=== PATIENT | female | born 1955 | race Caucasian/White ===

== ENCOUNTER 2016-10-17 12:33 | Inpatient (IN) | payer MEDICAID ==
[~2016-10-17] VITALS: Ht 170.2 cm; Wt 100.7 kg
[2016-10-17] MEDS ORDERED: SOD CHLORIDE 0.9% 500 ML IV STA (12:42)
--- NOTE | 2016-10-17 14:24 | ERA ---
ER Documentation Chief Complaint Date/Time DATE: 10/17/16 TIME: 14:19 Chief Complaint GEN WEAKNESS AND FATIGUE FOR THE PAST MONTH. WEAK WITH MIN EXERTION HPI This is a very pleasant 61-year-old female with a past medical history of hypertension. She presents to the emergency department complaining of generalized weakness, myalgias, and polyuria with polydipsia for the past month. The patient denies any recent travel or prolonged immobilization and has no shortness of breath at rest or exertion. The patient denies any hemoptysis hematemesis or melanotic stools. She denies any abdominal pain. She has no chest pain or pressure that radiates to the neck arm back or jaw. She has had no night sweats no tactile fever shaking or chills. She denies a productive or nonproductive cough. She denies any weight loss. She states her sister does have diabetes. She had not eaten anything this morning and took her blood glucose with her sisters diabetic monitor and her Accu-Chek was 160. ROS All systems reviewed and are negative except as per history of present illness. Medications Home Meds No Active Prescriptions or Reported Meds Allergies Allergies: Coded Allergies: No Known Allergy (Unverified , 10/17/16) Physical Exam Vitals Vital Signs Date Time Temp Pulse Resp B/P Pulse Ox O2 Delivery O2 Flow Rate FiO2 10/17/16 12:37 98.9 102 20 197/100 100 Physical Exam Constitutional:Well-developed. Well-nourished. HEENT:Normocephalic. Atraumatic.Pupils were equal round reactive to light. Moist mucous membranes.No tonsillar exudates. Conjunctival pallor. Neck: No nuchal rigidity. No lymphadenopathy. No posterior cervical spine tenderness or step-offs. No thyromegaly Respiratory: Not using accessory muscles of respiration.Lungs were clear to auscultation bilaterally. No rhonchi. No rales. No wheezing. Cardiovascular: Regular rate regular rhythm.No murmurs. No rubs were appreciated.S1, S2 normal. Distal pulses are palpable 2+ bilaterally. GI: Abdomen was soft. Nontender. Non Distended. No pulsatile abdominal masses or bruits. No rebound. No guarding. Bowel sounds were present and normal. Muscle skeletal: Full range of motion of both the upper and lower extremities bilaterally.Normal muscle tone.No assymetrical calf tenderness or swelling. Skin: No petechia, no purpura. No lesions on the palms or the soles of the feet. No maculopapular rash. NEURO: Patient was alert, awake, orientated x3.No facial droop. Gait observed and normal with no ataxia.Speech had regular rate and rhythm. No focal neurological deficits. Result Diagram: 10/17/16 1310 10/17/16 1310 Results 24 hrs Laboratory Tests Test 10/17/16 13:10 Absolute Reticulocyte Count 0.065X10^6 Alanine Aminotransferase (ALT/SGPT) 18IU/L Albumin 3.6g/dl Albumin/Globulin Ratio 0.78 Alkaline Phosphatase 74IU/L Anion Gap 17 Aspartate Amino Transf (AST/SGOT) 26IU/L Blood Morphology Comment Blood Urea Nitrogen 18mg/dl Calcium Level 8.8mg/dl Carbon Dioxide Level 28mmol/L Chloride Level 101mmol/L Creatinine 1.25mg/dl Direct Bilirubin 0.00mg/dl Ferritin Pending Globulin 4.60g/dl Glucose Level 128mg/dl Hematocrit 19.1% Hemoglobin 5.7g/dl Indirect Bilirubin 0.0mg/dl Lactate Dehydrogenase 426IU/L Mean Corpuscular Hemoglobin 17.2pg Mean Corpuscular Hemoglobin Concent 29.7g/dl Mean Corpuscular Volume 58.0fl Mean Platelet Volume 7.8fl Nucleated Red Blood Cells # Pending Nucleated Red Blood Cells % Pending Percent Reticulocyte Count 2.0% Platelet Count 38038^3/UL Potassium Level 3.5mmol/L Red Blood Count 3.3010^6/ul Red Cell Distribution Width 20.4% Sodium Level 142mmol/L Total Bilirubin 0.0mg/dl Total Protein 8.2g/dl White Blood Count 10.610^3/ul Current Medications Medications (Trade) Dose Ordered Sig/Panchito Route PRN Reason Start Time Stop Time Status Last Admin Dose Admin Sodium Chloride (NS) 500 ml @ 500 mls/hr Q1H STAT IV 10/17/16 12:42 10/17/16 13:41 DC 10/17/16 14:26 Clonidine (Catapres) 0.1 mg ONCE ONCE PO 10/17/16 14:30 10/17/16 14:31 DC 10/17/16 14:26 Procedures/MDM This patient presented to the emergency department with generalized myalgias. The patient was immediately placed on a automotive sales representative continuous pulse oximetry and IV access was established by nursing staff. Patient received 500 cc bolus of normal saline 12 Lead EKG tracing ordered and reviewed by myself showed: Normal sinus rhythm of 98 bpm and no arrhythmia. SC interval normal. QRS duration normal. No ST segment elevation No ST segment depression. No changes consistent with acute ischemia. The patient does have a family history of diabetes mellitus and therefore obtained a hemoglobin A1c given that she been complaining of polyuria and polydipsia. Patient's blood glucose was normal with no evidence of diabetes at this time. This patient also presented to the emergency department with severely elevated blood pressure however she had not taken her anti-hypertensive medication prior to arrival. My differential diagnosis included but was not limited to conditions that could end-organ damage such as acute coronary syndrome, acute pulmonary edema, aortic dissection, subarachnoid hemorrhage, intracerebral hemorrhage, cerebral infarction, withdrawal syndromes from beta blockers, or states of catecholamine excess such as pheochromocytoma or drug intoxication. Ancillary lab work was obtained. There was no elevation in the BUN and creatinine to suggest acute renal failure. Electrolytes were normal. Cardiac enzyme was normal and the 12 lead EKG showed no acute ischemic changes or left ventricular hypertrophy. Given that the patient had an absence of cerebral, ocular, cardiac or renal damage the hypertensive urgency was treated with oral agents being clonidine in the emergency room with improvement of the patient's blood pressure. The patient had new onset microcytic anemia. The patient signed a written consent to undergo blood transfusion. The patient was typed and crossed and 2 units of packed red blood cells were given to the patient. The patient will be admitted in serious condition to the hospitalist Dr. Khan Departure Diagnosis: Primary Impression: Symptomatic anemia Condition: Serious NETO ALEXANDER Oct 17, 2016 14:24
[2016-10-17 14:33] LABS: ALBUMIN 3.6 g/dl (3.3-4.9)
[2016-10-17 14:34] LABS: HEMATOCRIT 19.1 % (37.0-47.0); MEAN CORPUSCULAR HEMOGLOBIN 17.2 pg (29.0-33.0); MEAN CORPUSCULAR HGB CONC 29.7 g/dl (32.0-37.0); MEAN PLATELET VOLUME 7.8 fl (7.4-10.4); PLATELET COUNT 485 10^3/UL (140-440); POTASSIUM 3.5 mmol/L (3.5-5.1); RED CELL DISTRIBUTION WIDTH 20.4 % (11.5-14.5); UNCORRECTED WBC 10.6 10^3/ul (4.8-10.8); WHITE BLOOD COUNT 10.6 10^3/ul (4.8-10.8)
[2016-10-17 14:36] LABS: ALBUMIN/GLOBULIN RATIO 0.78; CONDITION 1; CREATININE 1.25 mg/dl (0.44-1.00); LH ANALYZER COMMENTS 1; TOTAL PROTEIN 8.2 g/dl (6.1-8.1)
[2016-10-17 14:37] LABS: CALCIUM 8.8 mg/dl (8.4-10.2); IRON 12 ug/dl (35-150)
[2016-10-17 14:38] LABS: HEMOGLOBIN 5.7 g/dl (12.0-16.0)
[2016-10-17 14:46] LABS: TOTAL IRON BINDING CAPACITY 433 ug/dl (241-421)
[2016-10-17 14:54] LABS: T3 UPTAKE 34.4 % (23.5-40.5)
[2016-10-17] MEDS ORDERED: ONDANSETRON 4 MG INJ IV PRN ×2 (15:00→16:00)
[2016-10-17] MEDS ORDERED: ACETAMINOPHEN 325 MG TAB PO PRN (15:00)
[2016-10-17 15:12] LABS: FERRITIN 4.6 ng/ml (11.1-264.0)
[2016-10-17 15:29] LABS: CREATINE KINASE 66 IU/L (23-200)
[2016-10-17 15:37] LABS: CK-MB 0.46 ng/ml (0.0-2.4)
[2016-10-17 15:45] LABS: TROPONIN-I < 0.012 ng/ml (0.00-0.12)
[2016-10-17] MEDS: SOD CHLORIDE 0.9% 1,000 ML IV SCH ×2 (16:00→23:50)
[2016-10-17] MEDS ORDERED: BISACODYL (EC) 5 MG TAB PO PRN (16:00)
[2016-10-17 16:06] LABS: EOSINOPHILS # 0.1 10^3/ul (0.0-0.5); LYMPHOCYTES # 2.3 10^3/ul (0.8-2.9); MONOCYTE # 0.4 10^3/ul (0.3-0.9); NEUTROPHIL # 7.6 10^3/ul (1.6-7.5); NUCLEATED RED BLOOD CELLS% 4.1 /100WBC (0.0-0.0)
[2016-10-17 16:07] LABS: HYPOCHROMASIA 3+; OVALOCYTES 1+
[2016-10-17 16:52] LABS: INR 1.05; PROTIME 13.7 Sec (12.2-14.2); PT RATIO 1.1
[2016-10-17 16:53] LABS: PARTIAL THROMBOPLASTIN TIME 30.9 Sec (25.0-35.0)
[2016-10-17] MEDS: SOD FERRIC GLUC COMPLX 125 MG in SOD CHLORIDE 0.9% 100 ML IVPB SCH (17:00)
[2016-10-17] MEDS: hydrALAzine 20 MG INJ IV PRN (17:36)
[2016-10-17 17:45] VITALS: TEMP 98.4
[2016-10-17 18:19] VITALS: BP 160/87; RESP 20
[2016-10-17 18:27] VITALS: PULSE 88
[2016-10-17 20:00] VITALS: BP 165/92; RESP 20; Ht 170.2 cm; Wt 100.7 kg
[2016-10-17 20:30] VITALS: BP 148/86; PULSE 91; RESP 20
[2016-10-17 20:33] VITALS: PULSE 80
--- NOTE | 2016-10-17 20:40 | RADRPT ---
PROCEDURE: US abdomen, limited, assessment for free fluid CLINICAL INDICATION: Injury, possible bleeding TECHNIQUE: Multiple white scale images were acquired of the patient's abdomen and reviewed on a PAC S workstation. COMPARISON: None FINDINGS: Four-quadrant abnormal ultrasound was performed, without evidence for intraperitoneal free fluid. T wo left renal cysts are incidentally noted, measuring up to 3.4 cm and 2.1 cm. IMPRESSION: No intraperitoneal free fluid is identified on ultrasound examination. RPTAT: HBST .Deondre Meneses MD, MD Date Time Electronically viewed and signed by .Deondre Meneses MD, MD on 10/17/2016 20:39 .T/
--- NOTE | 2016-10-17 20:43 | HP ---
DATE OF ADMISSION: 10/17/2016 PRESENTING COMPLAINT: Weakness with exertion. HISTORY OF PRESENTING COMPLAINT: This is a 61-year-old female with a past medical history of high blood pressure, who presents today complaining of generalized weakness and worsening depression. The patient also complains of muscle aches, but denies chest pain, denies abdominal pain, denies nausea or vomiting. Per ER report, she also has some polyuria and polydipsia, and was found to have a severely-low hemoglobin without a history of black stools, blood in her stool, or heavy periods. She is being admitted for further workup and management. PAST MEDICAL HISTORY: Positive for high blood pressure. PAST SURGICAL HISTORY: Patient denies. ALLERGIES: NO KNOWN DRUG ALLERGIES. SOCIAL HISTORY: Denies tobacco, alcohol, or illicit drug use. FAMILY HISTORY: Noncontributory. REVIEW OF SYSTEMS: I did a 12-point review of systems and pertinent findings are as noted in the HPI. PHYSICAL EXAMINATION VITAL SIGNS: Temperature 98.9, pulse 102, respirations 20, blood pressure 197/ 100, saturations 100% on room air. GENERAL: I found an elderly lady, in no acute distress. HEENT: Head was normocephalic. Pupils were equal and reactive. No scleral jaundice, but there was conjunctival pallor. Mucous membranes are slightly dry. NECK: Supple. CHEST: Fairly clear to auscultation. CARDIOVASCULAR: S1 and S2 without added sounds or murmurs. ABDOMEN: Full, but soft, nontender, with normoactive bowel sounds. EXTREMITIES: The patient had no lower extremity edema. SKIN: She had no ecchymosis or jaundice. There was also no skin rash. LABORATORY VALUES: Hemoglobin 5.7; low, platelets 485,000; high, creatinine 1.25; high. The rest of her basic metabolic profile was unremarkable. LFTs were basically unremarkable as well. EKG showed normal sinus rhythm with sinus tachycardia. No arrhythmia, no ST elevations or depressions. IMAGING: A chest x-ray was reviewed by myself and did not show any acute abnormalities. IMPRESSION: 1. Symptomatic anemia, ? source. 2. Accelerated hypertension. 3. Acute renal insufficiency. 4. Iron deficiency contributing to her anemia as well. PLAN: Is to admit her for further workup of anemia and treatment. She is being scheduled for 2 units of packed red cells. I will follow up on this. Also, will start iron replacement therapy with IV iron she is in house. Will obtain imaging studies to include a pelvic ultrasound and a stool occult blood test, to try and find the source of her bleeding. She might require a GI consultation for endoscopy. Will also continue home antihypertensives. If not available, will start her on a regimen here, and will add intravenous hydralazine p.r.n. I reviewed this plan of care with her. I have answered questions. Admission time has been 40 minutes. For further information and clarification, please review her chart and my orders. Dictated By: PAOLO CAMARILLO MD BA/NTS Conf#: [id number] DID#: [id number] MTDD
[2016-10-17] MEDS: DOCUSATE SODIUM 100 MG CAP PO SCH (21:00)
[2016-10-18] VITALS (13 sets, daily range): BP systolic 130–195; BP diastolic 71–103; PULSE 73–85; RESP 20
[2016-10-18] MEDS: SOD FERRIC GLUC COMPLX 125 MG in SOD CHLORIDE 0.9% 100 ML IVPB SCH ×2 (00:46→17:30)
[2016-10-18 02:21] LABS: HEMOGLOBIN 6.6 g/dl (12.0-16.0)
[2016-10-18] MEDS: hydrALAzine 20 MG INJ IV PRN ×2 (03:07→20:11)
[2016-10-18] MEDS: PANTOPRAZOLE (EC) 40 MG TAB PO SCH (05:16)
[2016-10-18 07:05] LABS: MEAN CORPUSCULAR HEMOGLOBIN 19.6 pg (29.0-33.0); MEAN CORPUSCULAR HGB CONC 30.8 g/dl (32.0-37.0); MEAN CORPUSCULAR VOLUME 63.7 fl (82.0-101.0); PLATELET COUNT 413 10^3/UL (140-440); RED BLOOD COUNT 3.46 10^6/ul (4.20-5.40); RED CELL DISTRIBUTION WIDTH 27.7 % (11.5-14.5); UNCORRECTED WBC 9.9 10^3/ul (4.8-10.8); WHITE BLOOD COUNT 9.9 10^3/ul (4.8-10.8)
[2016-10-18 07:06] LABS: POTASSIUM 3.5 mmol/L (3.5-5.1)
[2016-10-18 07:08] LABS: CREATININE 0.95 mg/dl (0.44-1.00)
[2016-10-18 07:09] LABS: CALCIUM 8.5 mg/dl (8.4-10.2)
[2016-10-18 07:10] LABS: MAGNESIUM 1.8 mg/dl (1.7-2.5)
[2016-10-18 07:28] LABS: CONDITION 1; HEMOGLOBIN 6.8 g/dl (12.0-16.0); LH ANALYZER COMMENTS 1; SUSPECT 1
[2016-10-18] MEDS: SOD CHLORIDE 0.9% 1,000 ML IV SCH ×2 (08:00→16:00)
[2016-10-18 08:06] LABS: ADD UMIC NO; URINE BILIRUBIN (Dip) NEGATIVE (NEGATIVE); URINE BLOOD (Dip) NEGATIVE (NEGATIVE); URINE COLOR LT. YELLOW (YELLOW); URINE GLUCOSE (Dip) NEGATIVE (NEGATIVE); URINE KETONES (Dip) NEGATIVE (NEGATIVE); URINE LEUKOCYTE ESTERASE (Dip) NEGATIVE (NEGATIVE); URINE NITRITE (Dip) NEGATIVE (NEGATIVE); URINE TOTAL PROTEIN (Dip) NEGATIVE (NEGATIVE); URINE UROBILINOGEN (Dip) 0.2 E.U./dL (0.1-1.0)
[2016-10-18 11:58] LABS: LYMPHOCYTES # 2.3 10^3/ul (0.8-2.9); MONOCYTE # 0.6 10^3/ul (0.3-0.9); SPHEROCYTES 1+; TARGET CELLS 1+
--- NOTE | 2016-10-18 12:07 | PN ---
Date/Time of Note Date/Time of Note DATE: 10/18/16 TIME: 12:03 Assessment/Plan VTE Prophylaxis VTE Prophylaxis Intervention: ambulation, SCD's Lines/Catheters IV [facility] Peripheral IV Urinary Cath still in place: No Assessment/Plan Assessment/Plan Symptomatic anemia: ?source. Accelerated hypertension. Acute renal insufficiency: resolved Iron deficiency contributing to her anemia as well. PLAN: Complete blood transfusion Wrong USS test was done , repeat re-ordered Send stool for blood testing GI consult. Patient has never had colonoscopy Supportive care. Subjective 24 Hr Interval Summary Free Text/Dictation Patient seen and examined. She has still not been able to have a BM yet GI review pending Patient continues to deny black stools or vaginal bleeding Exam/Review of Systems Vital Signs Vitals Vital Signs Date Time Temp Pulse Resp B/P Pulse Ox O2 Delivery O2 Flow Rate FiO2 10/18/16 11:23 98.4 74 20 153/73 98 10/18/16 06:05 Room Air 10/17/16 17:45 2.0 Intake and Output 10/17/16 10/17/16 10/18/16 15:00 23:00 07:00 Intake Total 1510 ml Balance 1510 ml Exam HEENT: Head was normocephalic. Pupils were equal and reactive. No scleral jaundice, but there was conjunctival pallor. Mucous membranes are slightly dry. NECK: Supple. CHEST: Fairly clear to auscultation. CARDIOVASCULAR: S1 and S2 without added sounds or murmurs. ABDOMEN: Full, but soft, nontender, with normoactive bowel sounds. EXTREMITIES: The patient had no lower extremity edema. SKIN: She had no ecchymosis or jaundice. There was also no skin rash. Results Result Diagram: 10/18/16 0530 10/18/16 0530 Results 24 hrs Laboratory Tests Test 10/17/16 13:10 10/17/16 13:30 10/18/16 01:45 10/18/16 04:00 Absolute Reticulocyte Count 0.065 Activated Partial Thromboplast Time 30.9 Alanine Aminotransferase (ALT/SGPT) 18 Albumin 3.6 Albumin/Globulin Ratio 0.78 Alkaline Phosphatase 74 Anion Gap 17 H Aspartate Amino Transf (AST/SGOT) 26 Band Neutrophils % 1.0 Blood Morphology Comment Blood Urea Nitrogen 18 Calcium Level 8.8 Carbon Dioxide Level 28 Chloride Level 101 Creatinine 1.25 H Direct Bilirubin 0.00 Eosinophils # 0.1 Eosinophils % 1.0 Ferritin 4.6 L Free Thyroxine Index 3.41 Globulin 4.60 H Glucose Level 128 Hematocrit 19.1 L 22.0 L Hemoglobin 5.7 *L 6.6 *L Hemoglobin A1c Hypochromasia 3+ INR International Normalized Ratio 1.05 Indirect Bilirubin 0.0 Iron Level 12 L Lactate Dehydrogenase 426 Lymphocytes # 2.3 Lymphocytes % 22.0 Mean Corpuscular Hemoglobin 17.2 L Mean Corpuscular Hemoglobin Concent 29.7 L Mean Corpuscular Volume 58.0 L Mean Platelet Volume 7.8 Monocytes # 0.4 Monocytes % 4.0 Neutrophils # 7.6 H Neutrophils % 72.0 Nucleated Red Blood Cells # Nucleated Red Blood Cells % 4.1 H Ovalocytes 1+ Percent Iron Saturation 3 L Percent Reticulocyte Count 2.0 H Platelet Count 485 H Potassium Level 3.5 Prothrombin Time 13.7 Prothrombin Time Ratio 1.1 Red Blood Count 3.30 L Red Cell Distribution Width 20.4 H Sodium Level 142 Thyroxine (T4) 9.9 Total Bilirubin 0.0 L Total Iron Binding Capacity 433 H Total Protein 8.2 H Triiodothyronine (T3) Uptake 34.4 White Blood Count 10.6 Creatine Kinase 66 Creatine Kinase Index 0.7 Creatinine Kinase MB (Mass) 0.46 Troponin I < 0.012 Urine Bilirubin NEGATIVE Urine Clarity CLEAR Urine Color LT. YELLOW Urine Glucose NEGATIVE Urine Hemoglobin NEGATIVE Urine Ketones NEGATIVE Urine Leukocyte Esterase NEGATIVE Urine Nitrite NEGATIVE Urine Specific [place] 1.010 Urine Total Protein NEGATIVE Urine Urobilinogen 0.2 E.U./dL Urine pH 6.5 Test 10/18/16 05:30 Anion Gap 15 Blood Morphology Comment Blood Urea Nitrogen 14 Calcium Level 8.5 Carbon Dioxide Level 23 Chloride Level 106 Creatinine 0.95 Eosinophils # 1.0 H Eosinophils % 10.0 H Glucose Level 110 Hematocrit 22.0 L Hemoglobin 6.8 *L Lymphocytes # 2.3 Lymphocytes % 23.0 Magnesium Level 1.8 Mean Corpuscular Hemoglobin 19.6 L Mean Corpuscular Hemoglobin Concent 30.8 L Mean Corpuscular Volume 63.7 L Mean Platelet Volume 8.0 Monocytes # 0.6 Monocytes % 6.0 Neutrophils # 6.0 Neutrophils % 61.0 Nucleated Red Blood Cells % 1.0 H Platelet Count 413 Potassium Level 3.5 Red Blood Count 3.46 L Red Cell Distribution Width 27.7 #H Sodium Level 140 Spherocytes 1+ Target Cells 1+ White Blood Count 9.9 Medications Medications Current Medications Bisacodyl 10 mg 10 mg ONCE PRN PO constipation; Start 10/17/16 at 16:00 Ferric Sodium Gluconate Complex 125 mg/Sodium Chloride 110 ml @ 110 mls/hr Q24H IVPB Last administered on 10/18/16 00:46; Admin Dose 110 MLS/HR; Start at 17:00; Stop 10/21/16 at 17:59 Sodium Chloride (NS) 1,000 ml @ 125 mls/hr Q8H IV Last administered on 23:50; Admin Dose 125 MLS/HR; Start 10/17/16 at 16:00 Docusate Sodium (Colace) 100 mg BID PO ; Start 10/17/16 at 21:00 Ondansetron HCl (Zofran Inj) 4 mg Q6H PRN IV NAUSEA AND/OR VOMITING; Start at 16:00 Pantoprazole (Protonix Tab) 40 mg DAILY@06 PO Last administered on 10/18/16 05 :16; Admin Dose 40 MG; Start 10/18/16 at 06:00 Hydralazine HCl (Apresoline) 10 mg Q6H PRN IV sbp>160mmhg Last administered on 10/18/16 03:07; Admin Dose 10 MG; Start 10/17/16 at 16:00 PAOLO CAMARILLO Oct 18, 2016 12:06
[2016-10-18 14:14] LABS: HEMATOCRIT 28.3 % (37.0-47.0); HEMOGLOBIN 8.8 g/dl (12.0-16.0)
--- NOTE | 2016-10-18 14:51 | RADRPT ---
PROCEDURE: US Pelvis. CLINICAL INDICATION: Pelvic pain. Anemia. TECHNIQUE: The pelvis was evaluated with transabdominal and transvaginal sonography in the axial a nd sagittal planes. COMPARISON: No prior study is available for comparison. FINDINGS: The uterus measures 7.9 x 4.7 x 7.2 cm. There is a posterior submucosal fibroid measuring 0.9 x 1.0 x 1.1 cm. There is no other uterine mass. The ovaries are not visualized. There is no other pelv ic mass or free fluid. IMPRESSION: 1. Posterior submucosal fibroid measuring 1.1 cm. 2. Ovaries not visualized. 3. Otherwise normal pelvic ultrasound. RPTAT: QQ .Dawit Neri MD, MD Date Time Electronically viewed and signed by .Dawit Neri MD, on 10/18/2016 14:50 .R/
[2016-10-18] MEDS ORDERED: MAGNESIUM CITRATE 300 ML BTL PO ONE (16:00)
[2016-10-18] MEDS: DOCUSATE SODIUM 100 MG CAP PO SCH ×2 (16:06→20:41)
[2016-10-18] MEDS: HYDROCHLOROTHIAZIDE 25 MG TAB PO SCH (16:06)
[2016-10-18] MEDS ORDERED: HYDROCODONE/APAP (5/325) TAB PO PRN (21:30)
[2016-10-18] MEDS ORDERED: ACETAMINOPHEN 325 MG TAB PO PRN (21:30)
[2016-10-19] VITALS (13 sets, daily range): BP systolic 117–183; BP diastolic 60–100; PULSE 72–110; RESP 19–20
--- NOTE | 2016-10-19 00:28 | CONS ---
Date/Time of Note Date/Time of Note DATE: 10/19/16 TIME: 00:16 Assessment/Plan Assessment/Plan Additional Assessment/Plan Anemia * continue Iron supplementation * stool OB x 2 * monitor H&H Q6hrs, transfuse 2 units for Hgb < 7.5 * PPI therapy * Further recommendations depend on clinical course * Pt seen in collaboration with Dr. Garza Consultation Date/Type/Reason Admit Date/Time Oct 17, 2016 at 14:53 Type of Consultation: GI Hx of Present Illness 61 YO F pt presented to ED with complaints of weakness. Pt states worsening weakness over the last month. Denies abdominal pain, nausea, vomiting, melena stools, fever, chills, SOB, CP, hematemesis, sick contact, travel outside of the [place], and diarrhea. Pt denies previous endoscopic evaluation. Pt presented with Hgb of 5.7 without any overt signs of bleeding and s/p 3 units PRBC. Pt has PMH of hypertension. Past Medical History Medical History: high cholesterol, hypertension Past Surgical History Past Surgical Hx: no surgical history Social History Alcohol Use: rarely Smoking Status: Never smoker Exam/Review of Systems Vital Signs Vitals Vital Signs Date Time Temp Pulse Resp B/P Pulse Ox O2 Delivery O2 Flow Rate FiO2 10/18/16 20:21 99.0 82 20 195/103 95 10/18/16 06:05 Room Air 10/17/16 17:45 2.0 Intake and Output 10/18/16 10/18/16 10/19/16 15:00 23:00 07:00 Intake Total 2000 ml Output Total 200 ml Balance 1800 ml Exam Constitutional: alert, obese, oriented, well developed Psych: nl mood/affect Head: atraumatic, normocephalic Eyes: EOMI, nl conjunctiva, nl lids ENMT: nl external ears & nose, nl lips & teeth, nl nasal mucosa & septum Respiratory: normal air movement Cardiovascular: regular rate and rhythm Gastrointestinal: non-tender, soft Neurological: CHILD DAY CARE PROVIDER II-XII intact Results Result Diagram: 10/18/16 1400 10/18/16 0530 Results 24 hrs Laboratory Tests Test 10/18/16 01:45 10/18/16 04:00 10/18/16 05:30 10/18/16 14:00 Hematocrit 22.0 L 22.0 L 28.3 #L Hemoglobin 6.6 *L 6.8 *L 8.8 #L Urine Bilirubin NEGATIVE Urine Clarity CLEAR Urine Color LT. YELLOW Urine Glucose NEGATIVE Urine Hemoglobin NEGATIVE Urine Ketones NEGATIVE Urine Leukocyte Esterase NEGATIVE Urine Nitrite NEGATIVE Urine Specific [place] 1.010 Urine Total Protein NEGATIVE Urine Urobilinogen 0.2 E.U./dL Urine pH 6.5 Anion Gap 15 Blood Morphology Comment Blood Urea Nitrogen 14 Calcium Level 8.5 Carbon Dioxide Level 23 Chloride Level 106 Creatinine 0.95 Eosinophils # 1.0 H Eosinophils % 10.0 H Glucose Level 110 Lymphocytes # 2.3 Lymphocytes % 23.0 Magnesium Level 1.8 Mean Corpuscular Hemoglobin 19.6 L Mean Corpuscular Hemoglobin Concent 30.8 L Mean Corpuscular Volume 63.7 L Mean Platelet Volume 8.0 Monocytes # 0.6 Monocytes % 6.0 Neutrophils # 6.0 Neutrophils % 61.0 Nucleated Red Blood Cells % 1.0 H Platelet Count 413 Potassium Level 3.5 Red Blood Count 3.46 L Red Cell Distribution Width 27.7 #H Sodium Level 140 Spherocytes 1+ Target Cells 1+ White Blood Count 9.9 Test 10/18/16 17:00 Stool Occult Blood NEGATIVE Medications Medications Current Medications Bisacodyl 10 mg 10 mg ONCE PRN PO constipation; Start 10/17/16 at 16:00 Ferric Sodium Gluconate Complex 125 mg/Sodium Chloride 110 ml @ 110 mls/hr Q24H IVPB Last administered on 10/18/16 17:30; Admin Dose 110 MLS/HR; Start at 17:00; Stop 10/21/16 at 17:59 Sodium Chloride (NS) 1,000 ml @ 125 mls/hr Q8H IV Last administered on 23:50; Admin Dose 125 MLS/HR; Start 10/17/16 at 16:00 Docusate Sodium (Colace) 100 mg BID PO Last administered on 10/18/16 16:06; Admin Dose 100 MG; Start 10/17/16 at 21:00 Ondansetron HCl (Zofran Inj) 4 mg Q6H PRN IV NAUSEA AND/OR VOMITING; Start at 16:00 Pantoprazole (Protonix Tab) 40 mg DAILY@06 PO Last administered on 10/18/16 05 :16; Admin Dose 40 MG; Start 10/18/16 at 06:00 Hydralazine HCl (Apresoline) 10 mg Q6H PRN IV sbp>160mmhg Last administered on 10/18/16 20:11; Admin Dose 10 MG; Start 10/17/16 at 16:00 Hydrochlorothiazide (Hydrochlorothiazide) 25 mg DAILY PO Last administered on 16:06; Admin Dose 25 MG; Start 10/18/16 at 15:30 Acetaminophen (Tylenol Tab) 650 mg Q6H PRN PO PAIN AND OR ELEVATED TEMP; Start 10/18/16 at 21:30 Acetaminophen/ Hydrocodone Bitart ([place] (5/325)) 1 tab Q6H PRN PO PAIN Last administered on 10/18/16 21:12; Admin Dose 1 TAB; Start 10/18/16 at 21:30 ALEJANDRA MARTINEZ Oct 19, 2016 00:27
[2016-10-19] MEDS: SOD CHLORIDE 0.9% 1,000 ML IV SCH ×3 (00:58→17:11)
[2016-10-19] MEDS: PANTOPRAZOLE (EC) 40 MG TAB PO SCH (06:30)
[2016-10-19 07:04] LABS: HEMOGLOBIN 9.6 g/dl (12.0-16.0); MEAN CORPUSCULAR HEMOGLOBIN 20.9 pg (29.0-33.0); MEAN CORPUSCULAR HGB CONC 31.9 g/dl (32.0-37.0); MEAN CORPUSCULAR VOLUME 65.4 fl (82.0-101.0); MEAN PLATELET VOLUME 8.7 fl (7.4-10.4); PLATELET COUNT 515 10^3/UL (140-440); RED BLOOD COUNT 4.59 10^6/ul (4.20-5.40); RED CELL DISTRIBUTION WIDTH 30.4 % (11.5-14.5); UNCORRECTED WBC 11.9 10^3/ul (4.8-10.8); WHITE BLOOD COUNT 11.9 10^3/ul (4.8-10.8)
[2016-10-19 07:06] LABS: POTASSIUM 3.6 mmol/L (3.5-5.1)
[2016-10-19 07:09] LABS: CREATININE 1.05 mg/dl (0.44-1.00)
[2016-10-19 07:10] LABS: CALCIUM 9.2 mg/dl (8.4-10.2)
[2016-10-19 07:14] LABS: CONDITION 1; LH ANALYZER COMMENTS 1; SUSPECT 1
[2016-10-19] MEDS: DOCUSATE SODIUM 100 MG CAP PO SCH ×2 (09:00→22:38)
[2016-10-19] MEDS: HYDROCHLOROTHIAZIDE 25 MG TAB PO SCH (09:14)
[2016-10-19] MEDS: hydrALAzine 20 MG INJ IV PRN ×2 (09:14→17:13)
[2016-10-19 10:00] LABS: EOSINOPHILS # 0.8 10^3/ul (0.0-0.5); LYMPHOCYTES # 2.6 10^3/ul (0.8-2.9); MONOCYTE # 1.3 10^3/ul (0.3-0.9); NEUTROPHIL # 7.1 10^3/ul (1.6-7.5)
[2016-10-19 10:01] LABS: ANISOCYTOSIS 2+; HYPOCHROMASIA 3+; MICROCYTOSIS 3+
[2016-10-19 10:02] LABS: POIKILOCYTOSIS 1+; POLYCHROMASIA 2+
[2016-10-19 10:03] LABS: OVALOCYTES FEW; PLATELET ESTIMATE PLT APPEAR INCREASED; TARGET CELLS OCCASIONAL
--- NOTE | 2016-10-19 11:41 | PN ---
Date/Time of Note Date/Time of Note DATE: 10/19/16 TIME: 11:36 Assessment/Plan VTE Prophylaxis VTE Prophylaxis Intervention: contraindicated Lines/Catheters IV C[facility]ter Type (from [facility] Peripheral IV Urinary Cath still in place: No Assessment/Plan Assessment/Plan Assessment: Severe unexplained microcytic, hypochromic anemia. Likely iron deficiency Rule out GI bleeding. OB negative 1 dose for No overt gastrointestinal or vaginal bleeding No previous colorectal cancer screening Hypertension Dyslipidemia Obesity Plan: Given the severity of anemia and the fact patient has never been evaluated for colorectal cancer screening I would recommend the patient undergo endoscopy and colonoscopy Patient was informed of this recommendation including an explanation of the procedures, indications, alternatives, potential complications. Patient is agreeable to proceed I will initiate preparation and schedule procedures for Friday Subjective 24 Hr Interval Summary Free Text/Dictation Course reviewed with nursing staff Patient feels better after transfusions She again was questioned regarding any evidence of overt bleeding which she emphatically denies There is no history of use of ulcerogenic drugs There is no gastrointestinal symptomatology of significance Stool OB negative 1 The patient was explained the need for endoscopic evaluation given her age and the fact that she has never had colorectal cancer screening The procedures were explained in detail including risks, benefits and alternatives. Patient is agreeable to proceed Exam/Review of Systems Vital Signs Vitals Vital Signs Date Time Temp Pulse Resp B/P Pulse Ox O2 Delivery O2 Flow Rate FiO2 10/19/16 09:25 97 10/19/16 07:50 98.0 19 183/99 93 10/18/16 06:05 Room Air 10/17/16 17:45 2.0 Intake and Output 10/18/16 10/18/16 10/19/16 15:00 23:00 07:00 Intake Total 2000 ml 1900 ml Output Total 200 ml Balance 1800 ml 1900 ml Exam Constitutional: alert, oriented, well developed Psych: nl mood/affect, no complaints Head: atraumatic, normocephalic Eyes: EOMI, PERRL, nl conjunctiva, nl lids, nl sclera ENMT: nl external ears & nose, nl lips & teeth, nl nasal mucosa & septum Neck: non-tender, supple Respiratory: clear to auscultation, normal air movement Cardiovascular: nl pulses, regular rate and rhythm Gastrointestinal: nl liver, spleen, non-tender, soft Musculoskeletal: nl extremities to inspection, nl gait and stance Extremities: normal pulses Lymph: nl lymph nodes Results Result Diagram: 10/19/16 0620 10/19/16 0620 Results 24 hrs Laboratory Tests Test 10/18/16 14:00 10/18/16 17:00 10/19/16 06:20 Hematocrit 28.3 #L 30.0 L Hemoglobin 8.8 #L 9.6 L Stool Occult Blood NEGATIVE Anion Gap 19 H Anisocytosis 2+ Blood Morphology Comment Blood Urea Nitrogen 12 Calcium Level 9.2 Carbon Dioxide Level 26 Chloride Level 103 Creatinine 1.05 H Eosinophils # 0.8 H Eosinophils % 7.0 Glucose Level 115 Hypochromasia 3+ Large Platelets FEW Lymphocytes # 2.6 Lymphocytes % 22.0 Mean Corpuscular Hemoglobin 20.9 L Mean Corpuscular Hemoglobin Concent 31.9 L Mean Corpuscular Volume 65.4 L Mean Platelet Volume 8.7 Microcytosis 3+ Monocytes # 1.3 H Monocytes % 11.0 Neutrophils # 7.1 Neutrophils % 60.0 Nucleated Red Blood Cells # Nucleated Red Blood Cells % Ovalocytes FEW Platelet Count 515 #H Platelet Estimate PLT APPEAR INCREASED Polychromasia 2+ Potassium Level 3.6 Red Blood Count 4.59 # Red Cell Distribution Width 30.4 H Sodium Level 144 Target Cells OCCASIONAL White Blood Count 11.9 #H Medications Medications Current Medications Bisacodyl 10 mg 10 mg ONCE PRN PO constipation; Start 10/17/16 at 16:00 Ferric Sodium Gluconate Complex 125 mg/Sodium Chloride 110 ml @ 110 mls/hr Q24H IVPB Last administered on 10/18/16 17:30; Admin Dose 110 MLS/HR; Start at 17:00; Stop 10/21/16 at 17:59 Sodium Chloride (NS) 1,000 ml @ 125 mls/hr Q8H IV Last administered on 09:14; Admin Dose 125 MLS/HR; Start 10/17/16 at 16:00 Docusate Sodium (Colace) 100 mg BID PO Last administered on 10/18/16 16:06; Admin Dose 100 MG; Start 10/17/16 at 21:00 Ondansetron HCl (Zofran Inj) 4 mg Q6H PRN IV NAUSEA AND/OR VOMITING; Start at 16:00 Pantoprazole (Protonix Tab) 40 mg DAILY@06 PO Last administered on 10/19/16 06 :30; Admin Dose 40 MG; Start 10/18/16 at 06:00 Hydralazine HCl (Apresoline) 10 mg Q6H PRN IV sbp>160mmhg Last administered on 10/19/16 09:14; Admin Dose 10 MG; Start 10/17/16 at 16:00 Hydrochlorothiazide (Hydrochlorothiazide) 25 mg DAILY PO Last administered on 09:14; Admin Dose 25 MG; Start 10/18/16 at 15:30 Acetaminophen (Tylenol Tab) 650 mg Q6H PRN PO PAIN AND OR ELEVATED TEMP; Start 10/18/16 at 21:30 Acetaminophen/ Hydrocodone Bitart ([place] (5/325)) 1 tab Q6H PRN PO PAIN Last administered on 10/18/16 21:12; Admin Dose 1 TAB; Start 10/18/16 at 21:30 NANCY FELICIANO MD Oct 19, 2016 11:41
--- NOTE | 2016-10-19 12:27 | PN ---
Date/Time of Note Date/Time of Note DATE: 10/19/16 TIME: 12:20 Assessment/Plan VTE Prophylaxis VTE Prophylaxis Intervention: SCD's Lines/Catheters [facility] (from [facility]): Peripheral IV Urinary Cath still in place: No Assessment/Plan Assessment/Plan 61 yo F with Symptomatic anemia: ?source. * Improved post 4 unites of PRBC * Pelvic USS shows fibroid but patient is postmenopausal and has had no vaginal bleeding Hypertension: Suboptimal control Mild CKD likely 2/2 HTN Iron deficiency contributing to her anemia as well. Constipation: resolved PLAN: Continue Iron supplementation Planned for endoscopy on Friday Patient likely is at baseline for CKD Continue supportive care and GI prep Add 2nd agent for improved BP control Propylaxis: PPI / SCDs Subjective 24 Hr Interval Summary Free Text/Dictation Patient seen and examined. was finally able to have BM yesteday Exam/Review of Systems Vital Signs Vitals Vital Signs Date Time Temp Pulse Resp B/P Pulse Ox O2 Delivery O2 Flow Rate FiO2 10/19/16 11:52 98.5 96 20 156/79 97 10/18/16 06:05 Room Air 10/17/16 17:45 2.0 Intake and Output 10/18/16 10/18/16 10/19/16 15:00 23:00 07:00 Intake Total 2000 ml 1900 ml Output Total 200 ml Balance 1800 ml 1900 ml Exam HEENT: Head was normocephalic. Pupils were equal and reactive. No scleral jaundice, but there was conjunctival pallor. Mucous membranes are slightly dry. NECK: Supple. CHEST: Fairly clear to auscultation. CARDIOVASCULAR: S1 and S2 without added sounds or murmurs. ABDOMEN: Full, but soft, nontender, with normoactive bowel sounds. EXTREMITIES: The patient had no lower extremity edema. SKIN: She had no ecchymosis or jaundice. There was also no skin rash. Results Result Diagram: 10/19/16 0620 10/19/16 0620 Results 24 hrs Laboratory Tests Test 10/18/16 14:00 10/18/16 17:00 10/19/16 06:20 10/19/16 12:07 Hematocrit 28.3 #L 30.0 L Hemoglobin 8.8 #L 9.6 L Stool Occult Blood NEGATIVE Anion Gap 19 H Anisocytosis 2+ Blood Morphology Comment Blood Urea Nitrogen 12 Calcium Level 9.2 Carbon Dioxide Level 26 Chloride Level 103 Creatinine 1.05 H Eosinophils # 0.8 H Eosinophils % 7.0 Glucose Level 115 Hypochromasia 3+ Large Platelets FEW Lymphocytes # 2.6 Lymphocytes % 22.0 Mean Corpuscular Hemoglobin 20.9 L Mean Corpuscular Hemoglobin Concent 31.9 L Mean Corpuscular Volume 65.4 L Mean Platelet Volume 8.7 Microcytosis 3+ Monocytes # 1.3 H Monocytes % 11.0 Neutrophils # 7.1 Neutrophils % 60.0 Nucleated Red Blood Cells # Nucleated Red Blood Cells % Ovalocytes FEW Platelet Count 515 #H Platelet Estimate PLT APPEAR INCREASED Polychromasia 2+ Potassium Level 3.6 Red Blood Count 4.59 # Red Cell Distribution Width 30.4 H Sodium Level 144 Target Cells OCCASIONAL White Blood Count 11.9 #H Lab Scanned Report REFERENCE LAB Medications Medications Current Medications Bisacodyl 10 mg 10 mg ONCE PRN PO constipation; Start 10/17/16 at 16:00 Ferric Sodium Gluconate Complex 125 mg/Sodium Chloride 110 ml @ 110 mls/hr Q24H IVPB Last administered on 10/18/16 17:30; Admin Dose 110 MLS/HR; Start at 17:00; Stop 10/21/16 at 17:59 Sodium Chloride (NS) 1,000 ml @ 125 mls/hr Q8H IV Last administered on 09:14; Admin Dose 125 MLS/HR; Start 10/17/16 at 16:00 Docusate Sodium (Colace) 100 mg BID PO Last administered on 10/18/16 16:06; Admin Dose 100 MG; Start 10/17/16 at 21:00 Ondansetron HCl (Zofran Inj) 4 mg Q6H PRN IV NAUSEA AND/OR VOMITING; Start at 16:00 Pantoprazole (Protonix Tab) 40 mg DAILY@06 PO Last administered on 10/19/16 06 :30; Admin Dose 40 MG; Start 10/18/16 at 06:00 Hydralazine HCl (Apresoline) 10 mg Q6H PRN IV sbp>160mmhg Last administered on 10/19/16 09:14; Admin Dose 10 MG; Start 10/17/16 at 16:00 Hydrochlorothiazide (Hydrochlorothiazide) 25 mg DAILY PO Last administered on 09:14; Admin Dose 25 MG; Start 10/18/16 at 15:30 Acetaminophen (Tylenol Tab) 650 mg Q6H PRN PO PAIN AND OR ELEVATED TEMP; Start 10/18/16 at 21:30 Acetaminophen/ Hydrocodone Bitart ([place] (5/325)) 1 tab Q6H PRN PO PAIN Last administered on 10/18/16 21:12; Admin Dose 1 TAB; Start 10/18/16 at 21:30 Bisacodyl (Dulcolax) 10 mg ONCE ONCE PO ; Start 10/20/16 at 12:00; Stop at 12:01 Magnesium Citrate (Citroma) 300 ml ONCE ONCE PO ; Start 10/20/16 at 13:00; Stop 10/20/16 at 13:01 Polyethylene Glycol (Miralax) 119 gm ONCE ONCE PO ; Start 10/20/16 at 14:00; Stop 10/20/16 at 14:01 PAOOL CAMARILLO Oct 19, 2016 12:27
[2016-10-19] MEDS: SOD FERRIC GLUC COMPLX 125 MG in SOD CHLORIDE 0.9% 100 ML IVPB SCH (17:10)
[2016-10-19] MEDS: METOPROLOL 25 MG TAB PO SCH (22:40)
[2016-10-20] VITALS (12 sets, daily range): BP systolic 138–219; BP diastolic 74–116; PULSE 72–92; RESP 18–20
[2016-10-20] MEDS: SOD CHLORIDE 0.9% 1,000 ML IV SCH ×4 (00:25→23:43)
[2016-10-20] MEDS: PANTOPRAZOLE (EC) 40 MG TAB PO SCH (05:54)
[2016-10-20 06:43] LABS: HEMATOCRIT 29.4 % (37.0-47.0); HEMOGLOBIN 9.5 g/dl (12.0-16.0); MEAN CORPUSCULAR HEMOGLOBIN 21.1 pg (29.0-33.0); MEAN CORPUSCULAR HGB CONC 32.2 g/dl (32.0-37.0); MEAN CORPUSCULAR VOLUME 65.6 fl (82.0-101.0); MEAN PLATELET VOLUME 8.4 fl (7.4-10.4); PLATELET COUNT 530 10^3/UL (140-440); RED BLOOD COUNT 4.49 10^6/ul (4.20-5.40); RED CELL DISTRIBUTION WIDTH 31.6 % (11.5-14.5); UNCORRECTED WBC 13.4 10^3/ul (4.8-10.8); WHITE BLOOD COUNT 13.4 10^3/ul (4.8-10.8)
[2016-10-20 06:46] LABS: POTASSIUM 3.8 mmol/L (3.5-5.1)
[2016-10-20 06:47] LABS: CONDITION 1; LH ANALYZER COMMENTS 1; SUSPECT 1
[2016-10-20 06:49] LABS: CREATININE 1.15 mg/dl (0.44-1.00)
[2016-10-20 06:50] LABS: CALCIUM 9.3 mg/dl (8.4-10.2)
[2016-10-20] MEDS: METOPROLOL 25 MG TAB PO SCH (08:17)
[2016-10-20] MEDS: HYDROCHLOROTHIAZIDE 25 MG TAB PO SCH (08:17)
[2016-10-20] MEDS: DOCUSATE SODIUM 100 MG CAP PO SCH ×2 (08:17→21:32)
[2016-10-20 10:16] LABS: EOSINOPHILS # 0.3 10^3/ul (0.0-0.5); LYMPHOCYTES # 2.1 10^3/ul (0.8-2.9); MONOCYTE # 1.3 10^3/ul (0.3-0.9); NEUTROPHIL # 9.6 10^3/ul (1.6-7.5)
[2016-10-20 10:17] LABS: ANISOCYTOSIS 2+; HYPOCHROMASIA 2+; MICROCYTOSIS 2+
[2016-10-20] MEDS ORDERED: BISACODYL (EC) 5 MG TAB PO ONE (12:00)
[2016-10-20] MEDS ORDERED: MAGNESIUM CITRATE 300 ML BTL PO ONE (13:00)
[2016-10-20] MEDS ORDERED: POLYETHYLENE GLYCOL 3350 119 GM POWDER PO ONE (14:00)
--- NOTE | 2016-10-20 14:12 | PN ---
Date/Time of Note Date/Time of Note DATE: 10/20/16 TIME: 14:10 Assessment/Plan VTE Prophylaxis VTE Prophylaxis Intervention: SCD's Lines/Catheters IV [facility]ter Type (from [facility]): Peripheral IV Urinary Cath still in place: No Assessment/Plan Assessment/Plan Assessment: Severe unexplained microcytic, hypochromic anemia. Likely iron deficiency Rule out GI bleeding. OB negative 1 dose for No overt gastrointestinal or vaginal bleeding No previous colorectal cancer screening Hypertension Dyslipidemia Obesity Plan: Continue colonoscopy preparation EGD and colonoscopy scheduled for tomorrow afternoon Subjective 24 Hr Interval Summary Free Text/Dictation Course reviewed with nursing staff Having some loose bowel movements related to colonoscopy prep Otherwise asymptomatic Exam/Review of Systems Vital Signs Vitals Vital Signs Date Time Temp Pulse Resp B/P Pulse Ox O2 Delivery O2 Flow Rate FiO2 10/20/16 12:53 78 10/20/16 11:50 98.7 20 149/88 94 10/18/16 06:05 Room Air 10/17/16 17:45 2.0 Intake and Output 10/19/16 10/19/16 10/20/16 15:00 23:00 07:00 Intake Total 750 ml 2000 ml Balance 750 ml 2000 ml Exam Constitutional: alert, oriented, well developed Psych: nl mood/affect, no complaints Head: atraumatic, normocephalic Eyes: EOMI, PERRL, nl conjunctiva, nl lids, nl sclera ENMT: nl external ears & nose, nl lips & teeth, nl nasal mucosa & septum Neck: non-tender, supple Respiratory: clear to auscultation, normal air movement Cardiovascular: nl pulses, regular rate and rhythm Gastrointestinal: nl liver, spleen, non-tender, soft Musculoskeletal: nl extremities to inspection, nl gait and stance Extremities: normal pulses Lymph: nl lymph nodes Results Result Diagram: 10/20/16 0604 10/20/16 0535 Results 24 hrs Laboratory Tests Test 10/20/16 05:35 10/20/16 06:04 Anion Gap 16 Blood Urea Nitrogen 11 Calcium Level 9.3 Carbon Dioxide Level 27 Chloride Level 103 Creatinine 1.15 H Glucose Level 112 Potassium Level 3.8 Sodium Level 142 Anisocytosis 2+ Blood Morphology Comment Differential Comment MANUAL DIFF Dimorphic Red Blood Cells RARE Eosinophils # 0.3 Eosinophils % 2.0 Hematocrit 29.4 L Hemoglobin 9.5 L Hypochromasia 2+ Large Platelets RARE Lymphocytes # 2.1 Lymphocytes % 16.0 Mean Corpuscular Hemoglobin 21.1 L Mean Corpuscular Hemoglobin Concent 32.2 Mean Corpuscular Volume 65.6 L Mean Platelet Volume 8.4 Microcytosis 2+ Monocytes # 1.3 H Monocytes % 10.0 Neutrophils # 9.6 H Neutrophils % 72.0 Platelet Count 530 H Red Blood Count 4.49 Red Cell Distribution Width 31.6 H White Blood Count 13.4 H Medications Medications Current Medications Bisacodyl 10 mg 10 mg ONCE PRN PO constipation; Start 10/17/16 at 16:00 Ferric Sodium Gluconate Complex 125 mg/Sodium Chloride 110 ml @ 110 mls/hr Q24H IVPB Last administered on 10/19/16 17:10; Admin Dose 110 MLS/HR; Start at 17:00; Stop 10/21/16 at 17:59 Sodium Chloride (NS) 1,000 ml @ 125 mls/hr Q8H IV Last administered on 05:59; Admin Dose 125 MLS/HR; Start 10/17/16 at 16:00 Docusate Sodium (Colace) 100 mg BID PO Last administered on 10/20/16 08:17; Admin Dose 100 MG; Start 10/17/16 at 21:00 Ondansetron HCl (Zofran Inj) 4 mg Q6H PRN IV NAUSEA AND/OR VOMITING; Start at 16:00 Pantoprazole (Protonix Tab) 40 mg DAILY@06 PO Last administered on 10/20/16 05 :54; Admin Dose 40 MG; Start 10/18/16 at 06:00 Hydralazine HCl (Apresoline) 10 mg Q6H PRN IV sbp>160mmhg Last administered on 10/19/16 17:13; Admin Dose 10 MG; Start 10/17/16 at 16:00 Hydrochlorothiazide (Hydrochlorothiazide) 25 mg DAILY PO Last administered on 08:17; Admin Dose 25 MG; Start 10/18/16 at 15:30 Acetaminophen (Tylenol Tab) 650 mg Q6H PRN PO PAIN AND OR ELEVATED TEMP; Start 10/18/16 at 21:30 Acetaminophen/ Hydrocodone Bitart ([place] (5/325)) 1 tab Q6H PRN PO PAIN Last administered on 10/18/16 21:12; Admin Dose 1 TAB; Start 10/18/16 at 21:30 Metoprolol Tartrate (Lopressor) 25 mg BID PO Last administered on 10/20/16 08: 17; Admin Dose 25 MG; Start 10/19/16 at 21:00 NANCY FELICIANO MD Oct 20, 2016 14:12
--- NOTE | 2016-10-20 16:31 | PN ---
Date/Time of Note Date/Time of Note DATE: 10/20/16 TIME: 16:28 Assessment/Plan VTE Prophylaxis VTE Prophylaxis Intervention: SCD's Lines/Catheters IV C[facility]ter Type (from [facility]): Peripheral IV Urinary Cath still in place: No Assessment/Plan Assessment/Plan 61 yo F with Symptomatic anemia: ?source. * Improved post 4 unites of PRBC * Pelvic USS shows fibroid but patient is postmenopausal and has had no vaginal bleeding Hypertension: Suboptimal control Mild CKD likely 2/2 HTN Iron deficiency contributing to her anemia as well. Constipation: resolved PLAN: Continue Iron supplementation Planned for endoscopy on Friday Patient likely is at baseline for CKD Continue supportive care and GI prep Propylaxis: PPI / SCDs Subjective 24 Hr Interval Summary Free Text/Dictation c/o no BM Constitutional: no complaints Exam/Review of Systems Vital Signs Vitals Vital Signs Date Time Temp Pulse Resp B/P Pulse Ox O2 Delivery O2 Flow Rate FiO2 10/20/16 15:29 98.9 87 20 138/77 97 10/18/16 06:05 Room Air 10/17/16 17:45 2.0 Intake and Output 10/19/16 10/19/16 10/20/16 15:00 23:00 07:00 Intake Total 750 ml 2000 ml Balance 750 ml 2000 ml Exam Constitutional: alert, oriented Head: normocephalic Eyes: PERRL ENMT: mucosa pink and moist Neck: supple Respiratory: clear to auscultation Cardiovascular: regular rate and rhythm, No murmurs/extra sounds Gastrointestinal: bowel sounds, non-tender, soft Extremities: No edema Neurological: nl mental status, nl speech, nl strength Results Result Diagram: 10/20/16 0604 10/20/16 0535 Results 24 hrs Laboratory Tests Test 10/20/16 05:35 10/20/16 06:04 Anion Gap 16 Blood Urea Nitrogen 11 Calcium Level 9.3 Carbon Dioxide Level 27 Chloride Level 103 Creatinine 1.15 H Glucose Level 112 Potassium Level 3.8 Sodium Level 142 Anisocytosis 2+ Blood Morphology Comment Differential Comment MANUAL DIFF Dimorphic Red Blood Cells RARE Eosinophils # 0.3 Eosinophils % 2.0 Hematocrit 29.4 L Hemoglobin 9.5 L Hypochromasia 2+ Large Platelets RARE Lymphocytes # 2.1 Lymphocytes % 16.0 Mean Corpuscular Hemoglobin 21.1 L Mean Corpuscular Hemoglobin Concent 32.2 Mean Corpuscular Volume 65.6 L Mean Platelet Volume 8.4 Microcytosis 2+ Monocytes # 1.3 H Monocytes % 10.0 Neutrophils # 9.6 H Neutrophils % 72.0 Platelet Count 530 H Red Blood Count 4.49 Red Cell Distribution Width 31.6 H White Blood Count 13.4 H Medications Medications Current Medications Bisacodyl 10 mg 10 mg ONCE PRN PO constipation; Start 10/17/16 at 16:00 Ferric Sodium Gluconate Complex 125 mg/Sodium Chloride 110 ml @ 110 mls/hr Q24H IVPB Last administered on 10/19/16 17:10; Admin Dose 110 MLS/HR; Start at 17:00; Stop 10/21/16 at 17:59 Sodium Chloride (NS) 1,000 ml @ 125 mls/hr Q8H IV Last administered on 05:59; Admin Dose 125 MLS/HR; Start 10/17/16 at 16:00 Docusate Sodium (Colace) 100 mg BID PO Last administered on 10/20/16 08:17; Admin Dose 100 MG; Start 10/17/16 at 21:00 Ondansetron HCl (Zofran Inj) 4 mg Q6H PRN IV NAUSEA AND/OR VOMITING; Start at 16:00 Pantoprazole (Protonix Tab) 40 mg DAILY@06 PO Last administered on 10/20/16 05 :54; Admin Dose 40 MG; Start 10/18/16 at 06:00 Hydralazine HCl (Apresoline) 10 mg Q6H PRN IV sbp>160mmhg Last administered on 10/19/16 17:13; Admin Dose 10 MG; Start 10/17/16 at 16:00 Hydrochlorothiazide (Hydrochlorothiazide) 25 mg DAILY PO Last administered on 08:17; Admin Dose 25 MG; Start 10/18/16 at 15:30 Acetaminophen (Tylenol Tab) 650 mg Q6H PRN PO PAIN AND OR ELEVATED TEMP; Start 10/18/16 at 21:30 Acetaminophen/ Hydrocodone Bitart ([place] (5/325)) 1 tab Q6H PRN PO PAIN Last administered on 10/18/16 21:12; Admin Dose 1 TAB; Start 1/27/17 at 21:30 Metoprolol Tartrate (Lopressor) 50 mg BID PO ; Start 10/20/16 at 21:00; Status KARENV PAOLO CAMARILLO Oct 20, 2016 16:31
[2016-10-20] MEDS: SOD FERRIC GLUC COMPLX 125 MG in SOD CHLORIDE 0.9% 100 ML IVPB SCH (16:55)
[2016-10-20] MEDS ORDERED: METOPROLOL 50 MG TAB PO SCH (21:00)
[2016-10-20] MEDS: METOPROLOL 50 MG TAB PO SCH (21:32)
[2016-10-20] MEDS: hydrALAzine 20 MG INJ IV PRN (21:33)
[2016-10-21] VITALS (13 sets, daily range): BP systolic 141–201; BP diastolic 75–101; PULSE 74–87; RESP 16–32
[2016-10-21] MEDS: SOD CHLORIDE 0.9% 1,000 ML IV SCH ×3 (05:41→16:50)
[2016-10-21] MEDS: PANTOPRAZOLE (EC) 40 MG TAB PO SCH (05:41)
[2016-10-21] MEDS ORDERED: POLYETHYLENE GLYCOL 3350 119 GM POWDER PO ONE (06:00)
[2016-10-21] MEDS ORDERED: POLYETHYLENE GLYCOL 3350 119 GM POWDER PO SCH (06:30)
[2016-10-21] MEDS ORDERED: BISACODYL (EC) 5 MG TAB PO ONE (08:00)
[2016-10-21] MEDS: DOCUSATE SODIUM 100 MG CAP PO SCH ×2 (09:37→22:24)
[2016-10-21] MEDS: HYDROCHLOROTHIAZIDE 25 MG TAB PO SCH (09:38)
[2016-10-21] MEDS: METOPROLOL 50 MG TAB PO SCH ×2 (09:38→22:19)
--- NOTE | 2016-10-21 10:09 | PN ---
Date/Time of Note Date/Time of Note DATE: 10/21/16 TIME: 10:05 Assessment/Plan VTE Prophylaxis VTE Prophylaxis Intervention: SCD's Lines/Catheters [facility] [place] Urinary Cath still in place: No Assessment/Plan Chief Complaint/Hosp Course Assessment/Plan: 61 yo F with: 1. Symptomatic anemia: ?source - Improved post 4 unites of PRBC. Pelvic USS shows fibroid but patient is postmenopausal and has had no vaginal bleeding. - monitor CBC, Continue Iron supplementation - for EGD/colonscopy later today - f/u GI rec's 2. Hypertension: Suboptimal control. - PO meds, prn hydralazine 3. Mild CKD - likely 2/2 HTN. Patient likely is at baseline for CKD - continue IVF's 4. Propylaxis: PPI / SCDs Problems: Subjective 24 Hr Interval Summary Free Text/Dictation Pt denies bleeding. Awaiting EGD/colonscopy for later today. + LUE swelling+ pain. Exam/Review of Systems Vital Signs Vitals Vital Signs Date Time Temp Pulse Resp B/P Pulse Ox O2 Delivery O2 Flow Rate FiO2 10/21/16 07:49 98.2 79 19 155/75 96 10/20/16 22:30 Room Air 10/17/16 17:45 2.0 Intake and Output 10/20/16 10/20/16 10/21/16 15:00 23:00 07:00 Intake Total 110 ml 480 ml Balance 110 ml 480 ml Exam Constitutional: alert, oriented Head: normocephalic Eyes: PERRL ENMT: mucosa pink and moist Neck: supple Respiratory: clear to auscultation Cardiovascular: regular rate and rhythm, No murmurs/extra sounds Gastrointestinal: bowel sounds, non-tender, soft Extremities: + LUE swelling Neurological: nl mental status, nl speech, nl strength Results Result Diagram: 10/20/16 0604 10/20/16 0535 Results 24 hrs Laboratory Tests Test 10/20/16 14:00 Stool Occult Blood NEGATIVE Medications Medications Current Medications Bisacodyl 10 mg 10 mg ONCE PRN PO constipation; Start 10/17/16 at 16:00 Ferric Sodium Gluconate Complex 125 mg/Sodium Chloride 110 ml @ 110 mls/hr Q24H IVPB Last administered on 10/20/16t 16:55; Admin Dose 110 MLS/HR; Start at 17:00; Stop 10/21/16 at 17:59 Sodium Chloride (NS) 1,000 ml @ 125 mls/hr Q8H IV Last administered on 05:41; Admin Dose 125 MLS/HR; Start 10/17/16 at 16:00 Docusate Sodium (Colace) 100 mg BID PO Last administered on 10/21/16 09:37; Admin Dose 100 MG; Start 10/17/16 at 21:00 Ondansetron HCl (Zofran Inj) 4 mg Q6H PRN IV NAUSEA AND/OR VOMITING; Start at 16:00 Pantoprazole (Protonix Tab) 40 mg DAILY@06 PO Last administered on 10/21/16 05 :41; Admin Dose 40 MG; Start 10/18/16 at 06:00 Hydralazine HCl (Apresoline) 10 mg Q6H PRN IV sbp>160mmhg Last administered on 10/20/16 21:33; Admin Dose 10 MG; Start 10/17/16 at 16:00 Hydrochlorothiazide (Hydrochlorothiazide) 25 mg DAILY PO Last administered on 09:38; Admin Dose 25 MG; Start 10/18/16 at 15:30 Acetaminophen (Tylenol Tab) 650 mg Q6H PRN PO PAIN AND OR ELEVATED TEMP; Start 10/18/16 at 21:30 Acetaminophen/ Hydrocodone Bitart ([place] (5/325)) 1 tab Q6H PRN PO PAIN Last administered on 10/18/16 21:12; Admin Dose 1 TAB; Start 10/18/16 at 21:30 Metoprolol Tartrate (Lopressor) 25 mg BID PO Last administered on 10/21/16 09: 38; Admin Dose 25 MG; Start 10/20/16 at 21:00 RITIKA KIMBLE Oct 21, 2016 10:09
--- NOTE | 2016-10-21 11:37 | RADRPT ---
PROCEDURE: US upper extremity Venous. CLINICAL INDICATION: Left arm swelling TECHNIQUE: Multiple sonographic images of the left upper extremity venous system was obtained util izing grayscale, color-flow, compressive sonography and doppler imaging with augmentation. The imag es were reviewed on a PACS workstation. COMPARISON: None. FINDINGS: There is normal compressibility and flow within the left internal jugular vein, subclavian vein, axi llary vein, brachial, basilic,, radial and ulnar veins. RPTAT: AA IMPRESSION: Thrombosed left cephalic vein. A call report was made and the findings discussed with Yohannes Benavides's staff [place] at 10/21/19 11:34:56 AM. .Aldo Gooden MD, Date Time Electronically viewed and signed by .Aldo Gooden MD, on 10/21/2016 11:37 .S/
[2016-10-21] MEDS: SOD FERRIC GLUC COMPLX 125 MG in SOD CHLORIDE 0.9% 100 ML IVPB SCH (16:49)
[2016-10-21] MEDS ORDERED: LABETALOL HCL 20MG INJ ONE (18:03)
[2016-10-21] MEDS ORDERED: MIDAZOLAM 1 MG/ML 2 ML INJ ONE (18:38)
[2016-10-21] MEDS ORDERED: PROPOFOL 20 ML ONE (18:38)
[2016-10-21] MEDS ORDERED: FENTAnyl 50 MCG/ML VIAL ONE (18:38)
[2016-10-21] MEDS ORDERED: SOD CHLORIDE 0.9% 100 ML ONE (21:14)
[2016-10-21] MEDS ORDERED: IOHEXOL 300MG/ML 150 ML BTL ONE (21:14)
[2016-10-22 05:42] LABS: HEMATOCRIT 27.9 % (37.0-47.0); HEMOGLOBIN 8.8 g/dl (12.0-16.0); MEAN CORPUSCULAR HEMOGLOBIN 21.6 pg (29.0-33.0); MEAN CORPUSCULAR HGB CONC 31.4 g/dl (32.0-37.0); MEAN CORPUSCULAR VOLUME 68.9 fl (82.0-101.0); MEAN PLATELET VOLUME 7.9 fl (7.4-10.4); PLATELET COUNT 394 10^3/UL (140-440); RED BLOOD COUNT 4.05 10^6/ul (4.20-5.40); RED CELL DISTRIBUTION WIDTH 32.2 % (11.5-14.5); UNCORRECTED WBC 10.4 10^3/ul (4.8-10.8); WHITE BLOOD COUNT 10.4 10^3/ul (4.8-10.8)
[2016-10-22] MEDS: SOD CHLORIDE 0.9% 1,000 ML IV SCH ×4 (06:08→18:43)
[2016-10-22] MEDS: PANTOPRAZOLE (EC) 40 MG TAB PO SCH (06:08)
[2016-10-22 06:14] LABS: CALCIUM 8.6 mg/dl (8.4-10.2); CREATININE 1.01 mg/dl (0.44-1.00); POTASSIUM 3.2 mmol/L (3.5-5.1)
[2016-10-22 07:27] VITALS: BP 162/82; RESP 18
[2016-10-22 07:57] LABS: CONDITION 1; LH ANALYZER COMMENTS 1; SUSPECT 1
[2016-10-22] MEDS: DOCUSATE SODIUM 100 MG CAP PO SCH ×2 (09:34→21:00)
[2016-10-22] MEDS: METOPROLOL 50 MG TAB PO SCH ×2 (09:37→21:41)
[2016-10-22] MEDS: HYDROCHLOROTHIAZIDE 25 MG TAB PO SCH (09:37)
[2016-10-22] MEDS ORDERED: POTASSIUM CHLORIDE (SR) 20 MEQ TAB PO STA (10:12)
--- NOTE | 2016-10-22 10:13 | PN ---
Date/Time of Note Date/Time of Note DATE: 10/22/16 TIME: 10:10 Assessment/Plan VTE Prophylaxis VTE Prophylaxis Intervention: SCD's Lines/Catheters IV Catheter Type (from [facility]): Peripheral IV Urinary Cath still in place: No Assessment/Plan Chief Complaint/Hosp Course Assessment/Plan: 61 yo F with: 1. Symptomatic anemia: ?source - Improved post 4 unites of PRBC. Pelvic USS shows fibroid but patient is postmenopausal and has had no vaginal bleeding. Had EGD yesterday. - monitor CBC, Continue Iron supplementation - f/u final results of EGD/colonscopy (pending results)- f/u GI rec's 2. Hypertension: Suboptimal control. - PO meds, prn hydralazine 3. Mild CKD - likely 2/2 HTN. Patient likely is at baseline for CKD - continue IVF's 4. Propylaxis: PPI / SCDs 5. LUE swelling - sec to thrombosed left cephalic vein. - for now, continue LUE elevation and warm compresses TID. Problems: Subjective 24 Hr Interval Summary Free Text/Dictation Pt had EGD yesterday, denies UGI or LGI. Exam/Review of Systems Vital Signs Vitals Vital Signs Date Time Temp Pulse Resp B/P Pulse Ox O2 Delivery O2 Flow Rate FiO2 10/22/16 07:27 98.8 18 18 162/82 93 10/21/16 19:58 Room Air Intake and Output 10/21/16 10/21/16 10/22/16 15:00 23:00 07:00 Intake Total 2020 ml 1680 ml Balance 2020 ml 1680 ml Exam Constitutional: alert, oriented Head: normocephalic Eyes: PERRL ENMT: mucosa pink and moist Neck: supple Respiratory: clear to auscultation Cardiovascular: regular rate and rhythm, No murmurs/extra sounds Gastrointestinal: bowel sounds, non-tender, soft Extremities: + LUE swelling Neurological: nl mental status, nl speech, nl strength Results Result Diagram: 10/22/16 0510 10/22/16 0510 Results 24 hrs Laboratory Tests Test 10/21/16 20:30 10/22/16 05:10 Carcinoembryonic Antigen 7.2 H Anion Gap 14 Blood Morphology Comment Blood Urea Nitrogen 12 Calcium Level 8.6 Carbon Dioxide Level 27 Chloride Level 104 Creatinine 1.01 H Glucose Level 105 Hematocrit 27.9 L Hemoglobin 8.8 L Mean Corpuscular Hemoglobin 21.6 L Mean Corpuscular Hemoglobin Concent 31.4 L Mean Corpuscular Volume 68.9 L Mean Platelet Volume 7.9 Platelet Count 394 # Potassium Level 3.2 L Red Blood Count 4.05 L Red Cell Distribution Width 32.2 H Sodium Level 142 White Blood Count 10.4 # Medications Medications Current Medications Bisacodyl 10 mg 10 mg ONCE PRN PO constipation; Start 10/17/16 at 16:00 Sodium Chloride (NS) 1,000 ml @ 125 mls/hr Q8H IV Last administered on 06:08; Admin Dose 125 MLS/HR; Start 10/17/16 at 16:00 Docusate Sodium (Colace) 100 mg BID PO Last administered on 10/22/16 09:34; Admin Dose 100 MG; Start 10/17/16 at 21:00 Ondansetron HCl (Zofran Inj) 4 mg Q6H PRN IV NAUSEA AND/OR VOMITING; Start at 16:00 Pantoprazole (Protonix Tab) 40 mg DAILY@06 PO Last administered on 10/22/16 06 :08; Admin Dose 40 MG; Start 10/18/16 at 06:00 Hydralazine HCl (Apresoline) 10 mg Q6H PRN IV sbp>160mmhg Last administered on 10/20/16 21:33; Admin Dose 10 MG; Start 10/17/16 at 16:00 Hydrochlorothiazide (Hydrochlorothiazide) 25 mg DAILY PO Last administered on 09:37; Admin Dose 25 MG; Start 10/18/16 at 15:30 Acetaminophen (Tylenol Tab) 650 mg Q6H PRN PO PAIN AND OR ELEVATED TEMP; Start 10/18/16 at 21:30 Acetaminophen/ Hydrocodone Bitart ([place] (5/325)) 1 tab Q6H PRN PO PAIN Last administered on 10/18/16 21:12; Admin Dose 1 TAB; Start 10/18/16 at 21:30 Metoprolol Tartrate (Lopressor) 25 mg BID PO Last administered on 10/22/16 09: 37; Admin Dose 25 MG; Start 10/20/16 at 21:00 RITIKA KIMBLE Oct 22, 2016 10:13
--- NOTE | 2016-10-22 10:42 | CONS ---
Date/Time of Note Date/Time of Note DATE: 10/22/16 TIME: 10:38 Assessment/Plan Assessment/Plan Additional Assessment/Plan Severe unexplained microcytic, hypochromic anemia. Status post EGD: Linear duodenal ulcer with no stigmata of active bleeding, biopsy obtained, rule out H. pylori infection Status post colonoscopy: Large ulcerated mass, proximal ascending colon. biopsied and localization tattooed Hypertension Dyslipidemia Obesity Plan: Advance diet as tolerated Monitor hemoglobin every 6 hours, transfuse 2 units for hemoglobin less than 7.5 Review biopsy results Recommend Surgery consult Recommend HemeOnc consult Further recommendations pending clinical course Patient seen in collaboration with Dr. Garza Consultation Date/Type/Reason Admit Date/Time Oct 17, 2016 at 14:53 Initial Consult Date Type of Consultation: GI 24 HR Interval Summary Free Text/Dictation Status post EGD and colonoscopy CT angiogram completed and results pending Recommend surgery and oncology consult Exam/Review of Systems Vital Signs Vitals Vital Signs Date Time Temp Pulse Resp B/P Pulse Ox O2 Delivery O2 Flow Rate FiO2 10/22/16 07:27 98.8 18 18 162/82 93 10/21/16 19:58 Room Air Intake and Output 10/21/16 10/21/16 10/22/16 15:00 23:00 07:00 Intake Total 2020 ml 1680 ml Balance 2020 ml 1680 ml Exam Constitutional: alert, oriented, well developed Psych: nl mood/affect, no complaints Head: atraumatic, normocephalic Eyes: EOMI, PERRL, nl conjunctiva, nl lids, nl sclera ENMT: nl external ears & nose, nl lips & teeth, nl nasal mucosa & septum Neck: non-tender, supple Respiratory: clear to auscultation, normal air movement Cardiovascular: nl pulses, regular rate and rhythm Gastrointestinal: nl liver, spleen, non-tender, soft Musculoskeletal: nl extremities to inspection, nl gait and stance Extremities: normal pulses Lymph: nl lymph nodes Results Result Diagram: 10/22/16 0510 10/22/16 0510 Results 24 hrs Laboratory Tests Test 10/21/16 20:30 10/22/16 05:10 Carcinoembryonic Antigen 7.2 H Anion Gap 14 Blood Morphology Comment Blood Urea Nitrogen 12 Calcium Level 8.6 Carbon Dioxide Level 27 Chloride Level 104 Creatinine 1.01 H Glucose Level 105 Hematocrit 27.9 L Hemoglobin 8.8 L Mean Corpuscular Hemoglobin 21.6 L Mean Corpuscular Hemoglobin Concent 31.4 L Mean Corpuscular Volume 68.9 L Mean Platelet Volume 7.9 Platelet Count 394 # Potassium Level 3.2 L Red Blood Count 4.05 L Red Cell Distribution Width 32.2 H Sodium Level 142 White Blood Count 10.4 # Medications Medications Current Medications Bisacodyl 10 mg 10 mg ONCE PRN PO constipation; Start 10/17/16 at 16:00 Sodium Chloride (NS) 1,000 ml @ 75 mls/hr [id number] IV Last administered on 10/22 06:08; Admin Dose 125 MLS/HR; Start 10/17/16 at 16:00 Docusate Sodium (Colace) 100 mg BID PO Last administered on 10/22/16 09:34; Admin Dose 100 MG; Start 10/17/16 at 21:00 Ondansetron HCl (Zofran Inj) 4 mg Q6H PRN IV NAUSEA AND/OR VOMITING; Start at 16:00 Pantoprazole (Protonix Tab) 40 mg DAILY@06 PO Last administered on 10/22/16 06 :08; Admin Dose 40 MG; Start 10/18/16 at 06:00 Hydralazine HCl (Apresoline) 10 mg Q6H PRN IV sbp>160mmhg Last administered on 10/20/16 21:33; Admin Dose 10 MG; Start 10/17/16 at 16:00 Hydrochlorothiazide (Hydrochlorothiazide) 25 mg DAILY PO Last administered on 09:37; Admin Dose 25 MG; Start 10/18/16 at 15:30 Acetaminophen (Tylenol Tab) 650 mg Q6H PRN PO PAIN AND OR ELEVATED TEMP; Start 10/18/16 at 21:30 Acetaminophen/ Hydrocodone Bitart ([place] (5/325)) 1 tab Q6H PRN PO PAIN Last administered on 10/18/16 21:12; Admin Dose 1 TAB; Start 10/18/16 at 21:30 Metoprolol Tartrate (Lopressor) 50 mg BID PO ; Start 10/22/16 at 21:00; Status ALEJANDRA SERRANO Oct 22, 2016 10:42
--- NOTE | 2016-10-22 11:13 | RADRPT ---
PROCEDURE: CT Abdomen and Pelvis without contrast. CLINICAL INDICATION: Ascending colon mass TECHNIQUE: CT of the abdomen and pelvis was performed on a multi-detector scanner without IV contr ast. Coronal and sagittal images were reformatted from the axial data set. One or more of the foll owing dose reduction techniques were used: automated exposure control, adjustment of the mA and/or kV according to patient size, use of iterative reconstruction technique. CTDI = 20.67 mGy. DLP = 12 33.51 mGy-cm. COMPARISON: Ultrasound, 10/17/2016 and 10/18/2016 FINDINGS: CT abdomen: The lung bases are clear. The heart size is normal, without pericardial effusion. Liver, gallbladd er, biliary tree, pancreas, spleen, adrenal glands and right kidney are unremarkable. Benign left r enal cysts are noted. Tiny nonobstructive left renal calculus is seen, without ureterolithiasis or obstructive uropathy. The stomach is partially collapsed, but appears grossly unremarkable. The aorta is of normal caliber. Aortic vascular calcifications are present. There is no retroperit niño lymphadenopathy. The alton hepatis region is clear. CT pelvis: 8 cm segment of irregular wall thickening is seen involving the ascending colon (601-50), compatible with primary colonic neoplasm. There is nonspecific mild prominence of adjacent mesenteric lymph n odes - local lymph node metastatic disease cannot be excluded. No bowel obstruction, free intraperi toneal air or abscess is identified. There is no diverticulosis, diverticulitis or appendicitis. U rinary bladder, uterus and adnexa are grossly unremarkable. No pelvic mass, free fluid or lymphaden opathy is identified. The surrounding osseous structures are remarkable for mild degenerative spondylosis of the spine. T here is chronic grade 1 anterolisthesis at L4-5 secondary to facet arthrosis. No osteolytic or oste oblastic lesion is detected. IMPRESSION: 1. Ascending colon mass is identified, as described above, compatible with primary colonic neoplasm . 2. There is minimal prominence of adjacent mesenteric lymph nodes - local metastatic lymphadenopath y cannot be excluded. 3. No evidence of distant metastasis is seen in the abdomen and pelvis. 4. Tiny nonobstructive left renal calculus is noted, without ureterolithiasis or obstructive uropat hy. RPTAT: TT .Mike Cline MD, MD Date Time Electronically viewed and signed by .Mkie Cline MD, MD on 10/22/2016 11:13 .R/
[2016-10-22] MEDS: ENOXAPARIN 40 MG/0.4 ML SYG SC SCH (12:25)
--- NOTE | 2016-10-22 12:49 | GILP ---
DATE OF PROCEDURE: 10/21/2016 PROCEDURE: Colonoscopy with biopsies and localization tattoo. PREMEDICATION: Monitored anesthesia care by anesthesiologist. BRIEF HISTORY AND INDICATIONS: The patient with severe unexplained anemia. PREMEDICATION: Monitored anesthesia care by anesthesiologist. SURGEON: Juliano aGrza MD INSTRUMENT USED: Olympus colonoscope. PREPARATION: Adequate. TECHNIQUE: After informed consent, with the patient/relatives understanding the procedure, its indic ations potential risks and complications, including but not limited to: allergic reaction, bleeding, perforation, infection, missed lesions and after all pertinent questions were answered to the patie nt's satisfaction, the patient/relatives signed the witnessed informed consent. Following this, premedication was administered slowly IV push by under careful cardiovascular and re spiratory monitoring with pulse oximetry, automatic blood pressure and armature varnisher. Once the sedativ e effect was achieved, the patient was placed in the left lateral decubitus position, digital rectal examination was performed. The colonoscope was then introduced and advanced under visual control th roughout all segments of the colon including: the rectum, sigmoid, descending colon, splenic flexure , transverse colon, hepatic flexure, ascending colon and finally reaching the cecum which was clearl y identified by transillumination, finger indentation and the ileocecal valve. Careful examination o f the mucosa of the lower gastrointestinal tract both on insertion as well as withdrawal of the inst rument disclosed the following findings: Rectal Examination: No evidence of perirectal disease, no masses. Colonic Mucosa: The colonic mucosa unremarkable until we reached the proximal ascending colon where a very large circumferential obstructing ulcerated mass was identified. The mass is clearly maligna nt. Multiple biopsies were obtained, localization tattoo was applied to the distal margin of the le vibha. The instrument was withdrawn reexamining the mucosa in detail. No additional abnormalities a re noted with exception of moderate sized internal hemorrhoids. The patient tolerated the procedure well and was transferred out of the Endoscopy Suite awake and in good condition to continue recovery under observation. IMPRESSION 1. Large ulcerated mass proximal ascending colon, clearly malignant. Biopsied and localization tat too applied to the distal margin of the lesion. 2. Moderate size internal hemorrhoids. PLAN: Surgical and oncology consultation will be obtained. CT of the abdomen and pelvis, CEA titer s, further recommendations will depend on review of biopsies, CT and surgical and oncological consul tations. Dictated By: JULIANO GARZA MS/NTS Conf#: [id number] DID#: [id number]
--- NOTE | 2016-10-22 13:12 | GILP ---
DATE OF PROCEDURE: PROCEDURE: Esophagogastroduodenoscopy with biopsies. BRIEF HISTORY AND INDICATIONS: The patient is being evaluated for unexplained severe anemia. PREMEDICATION: Monitored anesthesia care by anesthesiologist. SURGEON: Nancy Garza MD. INSTRUMENT USED: Olympus endoscope TECHNIQUE: After informed consent, with the patient/relatives understanding the procedure, its indic ations, potential risks and complications, including but not limited to: allergic reaction, bleeding , perforation or infection, and after all pertinent questions were answered to the patients satisfac tion, the patient/relatives signed witnessed informed consent. Following this, premedication was administered slowly IV push under careful cardiovascular and respi ratory monitoring with pulse oximetry, automatic blood pressure and manager monitoring. Once the sedative effect was achieved the patient was place in the left lateral decubitus, the panen doscope was introduced and advanced under visual control. Careful examination of the upper gastrointestinal tract, both on insertion as well as withdrawal of the instrument disclosed the following findings: ESOPHAGUS: The mucosa of the entire esophagus appears within normal limits. There is no evidence of esophagitis, varices, neoplasm or stricture. No hiatal hernia identified. STOMACH: Upon entrance to the stomach air was insufflated, the gastric mcdonnell distended normally. The mucosa of the fundus, body and antrum of the stomach was carefully examined both head-on and on ret roflexion, and shows no abnormalities. There is no evidence of gastritis, ulcers or neoplasm. PYLORUS: The pylorus appears patent and within normal limits, with no evidence of gastric outlet obs truction. DUODENUM: The duodenal bulb is remarkable for linear ulceration in the duodenal bulb with no stigmat a. The second portion of the duodenum and appears unremarkable with no evidence of duodenitis, ulce r or neoplasm. The instrument was then withdrawn and biopsies were obtained of the body and antrum of the stomach t o rule out H. pylori infection. The patient tolerated the procedure well and was transfer out of the endoscopy suite awake, and in g ood condition to continue recovery under observation IMPRESSION: 1. Linear duodenal ulcer with no stigmata. 2. Rule out H. pylori infection. 3. Gastric biopsies obtained. PLAN: 1. The patient will be treated with PPIs. 2. Pathology will be reviewed as soon as available. 3. We will proceed with colonoscopy as planned. Dictated By: NANCY GARZA MS/ANNAMARIA Conf#: [id number] [facility]#: [id number]
--- NOTE | 2016-10-22 13:25 | CONS ---
Date/Time of Note Date/Time of Note DATE: 10/22/16 TIME: 13:17 Assessment/Plan Assessment/Plan Additional Assessment/Plan 61 yo woman with right sided colon cancer. Biopsy is pending as is a surgical consultation. I expect that she will need a right hemicolectomy both for therapy and for staging. Whether she would need adjuvant chemotherapy will depend upon the surgical stage. I would also want to know marker studies, eg, Kras, for future reference since chemotherapy may be needed in the future. Note that she denies any family history of cancer or colonic polyps. Also note that IV iron has been given. She will likely need PO iron after the upcoming surgery. Consultation Date/Type/Reason Admit Date/Time Oct 17, 2016 at 14:53 Date of Consultation: Oct 22, 2016 Type of Consultation: Oncology Reason for Consultation 61 yo woman with anemia. Found to have right colon tumor. Hx of Present Illness 61 yo woman with c/o weakness found to be anemic with obvious iron deficiency anemia. Colonoscopy showed obvious tumor in right colon. Biopsy results are pending. At present she is energetic and comfortable. Her main complaint is that she is hungry. Constitutional: no complaints Psychological: nl mood/affect, no complaints Past Medical History Medical History: high cholesterol, hypertension, other (obesity) Past Surgical History Past Surgical Hx: no surgical history Social History Alcohol Use: none Smoking Status: Never smoker Drug Use: none Other Social History [employer] Exam/Review of Systems Vital Signs Vitals Vital Signs Date Time Temp Pulse Resp B/P Pulse Ox O2 Delivery O2 Flow Rate FiO2 10/22/16 07:27 98.8 18 18 162/82 93 10/21/16 19:58 Room Air Intake and Output 10/21/16 10/21/16 10/22/16 15:00 23:00 07:00 Intake Total 2020 ml 1680 ml Balance 2020 ml 1680 ml Exam Constitutional: alert, obese, oriented, well developed Psych: no complaints Head: normocephalic Eyes: nl conjunctiva, other (pallor) ENMT: nl external ears & nose, nl lips & teeth, other (no telangiectasia) Neck: supple Respiratory: clear to auscultation Cardiovascular: regular rate and rhythm Gastrointestinal: nl liver, spleen, non-tender, soft Extremities: normal pulses Neurological: nl mental status, nl speech Skin: nl turgor Lymph: nl lymph nodes Results Result Diagram: 10/22/16 0510 10/22/16 0510 Results 24 hrs Laboratory Tests Test 10/21/16 20:30 10/22/16 05:10 Carcinoembryonic Antigen 7.2 H Anion Gap 14 Blood Morphology Comment Blood Urea Nitrogen 12 Calcium Level 8.6 Carbon Dioxide Level 27 Chloride Level 104 Creatinine 1.01 H Glucose Level 105 Hematocrit 27.9 L Hemoglobin 8.8 L Mean Corpuscular Hemoglobin 21.6 L Mean Corpuscular Hemoglobin Concent 31.4 L Mean Corpuscular Volume 68.9 L Mean Platelet Volume 7.9 Platelet Count 394 # Potassium Level 3.2 L Red Blood Count 4.05 L Red Cell Distribution Width 32.2 H Sodium Level 142 White Blood Count 10.4 # Medications Medications Current Medications Bisacodyl 10 mg 10 mg ONCE PRN PO constipation; Start 10/17/16 at 16:00 Sodium Chloride (NS) 1,000 ml @ 75 mls/hr [id number] IV Last administered on 10/22 08:00; Admin Dose 75 MLS/HR; Start 10/17/16 at 16:00 Docusate Sodium (Colace) 100 mg BID PO Last administered on 10/22/16 09:34; Admin Dose 100 MG; Start 10/17/16 at 21:00 Ondansetron HCl (Zofran Inj) 4 mg Q6H PRN IV NAUSEA AND/OR VOMITING; Start at 16:00 Pantoprazole (Protonix Tab) 40 mg DAILY@06 PO Last administered on 10/22/16 06 :08; Admin Dose 40 MG; Start 10/18/16 at 06:00 Hydralazine HCl (Apresoline) 10 mg Q6H PRN IV sbp>160mmhg Last administered on 10/20/16 21:33; Admin Dose 10 MG; Start 10/17/16 at 16:00 Hydrochlorothiazide (Hydrochlorothiazide) 25 mg DAILY PO Last administered on 09:37; Admin Dose 25 MG; Start 10/18/16 at 15:30 Acetaminophen (Tylenol Tab) 650 mg Q6H PRN PO PAIN AND OR ELEVATED TEMP; Start 10/18/16 at 21:30 Acetaminophen/ Hydrocodone Bitart ([place] (5/325)) 1 tab Q6H PRN PO PAIN Last administered on 10/18/16 21:12; Admin Dose 1 TAB; Start 10/18/16 at 21:30 Metoprolol Tartrate (Lopressor) 50 mg BID PO ; Start 10/22/16 at 21:00 Enoxaparin Sodium (Lovenox) 40 mg DAILY SC Last administered on 10/22/16 12:25 ; Admin Dose 40 MG; Start 10/22/16 at 11:00 EUGENIA GLASS MD Oct 22, 2016 13:25
[2016-10-22 13:36] LABS: EOSINOPHILS # 0.6 10^3/ul (0.0-0.5); LYMPHOCYTES # 1.2 10^3/ul (0.8-2.9); NEUTROPHIL # 7.4 10^3/ul (1.6-7.5)
[2016-10-22 17:24] LABS: CANCER ANTIGEN 125 11.1 U/ml (0.0-35.0)
[2016-10-22 20:20] VITALS: BP 150/70; RESP 20
--- NOTE | 2016-10-22 23:09 | CONS ---
[facility] INITIAL INPATIENT CONSULTATION NOTE DATE OF CONSULTATION: 10/22/2016 PLACE OF SERVICE: [facility], 6th floor. ASSESSMENT AND PLAN: A very pleasant 61-year-old lady with comorbid issue of body mass index of 34.8 and no other known major medical issues admitted through the emergency department at [facility] on 10/17/2016 initially with anemia, but currently with concerns of ascending colon primary malignancy with lymphadenopathy around it. This tumor is at least a stage II or perhaps a stage III disease depending on the extent of the lymphadenopathy. The pathology is still pending and the available tumor markers interestingly show slight elevation in CEA, but significant elevation in CA 19-9. The images are noncontrast and therefore limited in scope. Certainly the patient has concerning features for a malignant process and the working diagnosis is colon cancer, but the differential also includes other malignancies. Prior to having a better understanding of the pathology and staging it is difficult to render a full surgical opinion, but currently I do not see any significant contraindications for surgical intervention if we can demonstrate that the tumor is localized to colon only. The patient may benefit from neoadjuvant approach given the amount of lymphadenopathy and we will discuss this in multidisciplinary fashion. I am also curious as to why the CA 19-9 is elevated and would certainly need to have a liver protocol or pancreas protocol CT of the abdomen and pelvis with IV and oral contrast to better delineate these areas. I explained most of the above to the patient, with her daughter on the phone listening and answered all their questions to the best of my ability. I believe that the patient and family appear to understand and agree with the plans. With above assessment, I have recommend the followin. Oncology consultation. 2. Follow up on pathology report. 3. Resuscitate. 4. Symptom control. 5. CT scan of the abdomen and pelvis triple phase pancreas protocol. 6. Multidisciplinary Tumor Board presentation. 7. Further plans after above. Thank you again for allowing us to participate in the care of this very pleasant lady and her wonderful family. If there are any questions, please feel free to call me at [phone]. TOTAL VISIT TIME: 45 minutes of which more than half was spent in [id number] discussion with the patient as well as coordination of care between multiple physicians and providers. DATE OF ADMISSION: 10/17/2016 HISTORY OF PRESENT ILLNESS: The patient is a very pleasant 61-year-old lady with comorbid issue of BMI 34.8 and no known other major medical or surgical problems who was admitted to [facility] through the emergency department on 10/17/2016 primarily for weakness and then diagnosed with anemia. This led to abdominal imaging that included noncontrast CT of the abdomen and pelvis showing an area of ascending colon mass compatible with primary colonic neoplasm. There is a fair amount of lymphadenopathy around the area of the ascending colon. No evidence of distant metastatic disease was found. A small nonobstructive left renal calculus was also noted. The patient also had a left upper extremity ultrasound due to swelling of her left arm which demonstrated the presence of clot in this area. She underwent a colonoscopy which demonstrated a large ulcerative mass in the proximal ascending colon, clearly malignant. Biopsies were obtained and the edges were tattooed to distal margin of the lesion. Moderate sized internal hemorrhoids were also noted. She also underwent an upper endoscopy that showed linear duodenal ulcer with no stigmata and H. pylori was evaluated. I was kindly asked to consult. Note that the pathology report is still pending. During my visit the patient did not have any complaints. No changes in bowel or bladder habits. No blood in the stool or urine. Approximately 10 pound weight loss over the last few months and the appetite has been poor progressively over the last few weeks. No history of cancers in the patient or in the family. PAST MEDICAL HISTORY: BMI 34.8. PAST SURGICAL HISTORY: None. ALLERGIES: NO KNOWN DRUG ALLERGIES. HOME MEDICATIONS: None. SOCIAL HISTORY: The patient lives with her family. She does not report any smoking, drinking, or intravenous drug use. She is of [employer] background. FAMILY HISTORY: No major reported medical, surgical or oncologic history in the family as reported by the patient or noted in her chart. REVIEW OF SYSTEMS: Other than the above-mentioned, there are no other pertinent positives or pertinent negatives in a complete 14-point review of systems. PHYSICAL EXAMINATION: GENERAL: The patient appears to be a very pleasant [place] lady of non- descent, appearing stated age, lying in bed comfortably and in no acute distress. BMI 34.8. VITAL SIGNS: She is afebrile and her vital signs are stable with the exception of slight hypertension with systolics in the 150s to 160s. HEENT: Normocephalic and atraumatic. Extraocular muscles and hearing are grossly intact bilaterally and symmetrically. Sclerae are nonicteric. Oral cavity is clear; oral mucosa appeared to be pink and moist. Dentition: fair. NECK: Supple. There is no lymphadenopathy or JVD. There is no submental, submandibular or supraclavicular lymphadenopathy. CHEST: Rises symmetrically with each breath; patient is breathing comfortably. There are no audible wheezes, rales or rhonchi on the gross exam. HEART: HPulse is regular and palpable on the right wrist. Capillary refill was normal. Carotid pulses are palpable bilaterally and symmetrically in the neck. EXTREMITIES: Lower extremities contain no pitting edema around the ankles bilaterally and symmetrically. ABDOMEN: Abdomen is soft, nontender and nondistended. There are no peritoneal signs or guarding. No evidence of ascites, organomegaly, caput medusae, engorged subcutaneous veins, or other abnormalities. SKIN: Appears to be pink and feels warm to touch. NEUROLOGIC: Awake, alert, and follows commands appropriately. LABORATORY DATA: Shows platelet count 394. CEA 7.2. At the time of my visit CA 19-9 was not available, but at the time of this dictation it was at 973. CA- 125 11.1. Alpha fetoprotein 1.98, creatinine 1.01. Albumin prior to hydration was 3.6. INR 1.05. IMAGING: Pertinent findings of the images were reviewed above. Dictated By: KEELY ROME/ANNAMARIA Conf#: [id number] DID#: [id number] CC: MALIKA MILLER MD; KEELY LOPEZ MD;*EndCC* MTDD
[2016-10-23 06:03] LABS: POTASSIUM 3.4 mmol/L (3.5-5.1)
[2016-10-23 06:05] LABS: CREATININE 0.95 mg/dl (0.44-1.00)
[2016-10-23 06:06] LABS: CALCIUM 8.1 mg/dl (8.4-10.2)
[2016-10-23 06:08] LABS: HEMATOCRIT 27.5 % (37.0-47.0); HEMOGLOBIN 8.6 g/dl (12.0-16.0); MEAN CORPUSCULAR HEMOGLOBIN 21.7 pg (29.0-33.0); MEAN CORPUSCULAR HGB CONC 31.3 g/dl (32.0-37.0); MEAN CORPUSCULAR VOLUME 69.3 fl (82.0-101.0); MEAN PLATELET VOLUME 8.1 fl (7.4-10.4); PLATELET COUNT 390 10^3/UL (140-440); RED BLOOD COUNT 3.97 10^6/ul (4.20-5.40); RED CELL DISTRIBUTION WIDTH 33.2 % (11.5-14.5); UNCORRECTED WBC 9.3 10^3/ul (4.8-10.8); WHITE BLOOD COUNT 9.3 10^3/ul (4.8-10.8)
[2016-10-23] MEDS: PANTOPRAZOLE (EC) 40 MG TAB PO SCH (06:10)
[2016-10-23 06:23] LABS: CONDITION 1; LH ANALYZER COMMENTS 1; SUSPECT 1
[2016-10-23 07:33] LABS: BASOPHIL # 0.1 10^3/ul (0.0-0.1); EOSINOPHILS # 0.3 10^3/ul (0.0-0.5); MONOCYTE # 0.3 10^3/ul (0.3-0.9); NEUTROPHIL # 6.6 10^3/ul (1.6-7.5)
[2016-10-23] MEDS: HYDROCHLOROTHIAZIDE 25 MG TAB PO SCH (08:17)
[2016-10-23] MEDS: METOPROLOL 50 MG TAB PO SCH ×2 (08:18→20:46)
[2016-10-23] MEDS: ENOXAPARIN 40 MG/0.4 ML SYG SC SCH (08:24)
[2016-10-23 08:27] VITALS: BP 172/84; RESP 20
[2016-10-23] MEDS: SOD CHLORIDE 0.9% 1,000 ML IV SCH (08:33)
[2016-10-23] MEDS: DOCUSATE SODIUM 100 MG CAP PO SCH ×2 (08:33→20:46)
--- NOTE | 2016-10-23 09:57 | CONS ---
Date/Time of Note Date/Time of Note DATE: 10/23/16 TIME: 09:55 Assessment/Plan Assessment/Plan Additional Assessment/Plan Severe unexplained microcytic, hypochromic anemia. Status post EGD: Linear duodenal ulcer with no stigmata of active bleeding, biopsy obtained, rule out H. pylori infection Status post colonoscopy: Large ulcerated mass, proximal ascending colon. biopsied and localization tattooed Hypertension Dyslipidemia Obesity Plan: Advance diet as tolerated Monitor hemoglobin every 6 hours, transfuse 2 units for hemoglobin less than 7.5 Review biopsy results Surgery and HemeOnc following Further recommendations pending clinical course Patient seen in collaboration with Dr. Garza Consultation Date/Type/Reason Admit Date/Time Oct 17, 2016 at 14:53 Type of Consultation: Gastroenterology 24 HR Interval Summary Free Text/Dictation Tolerating diet Surgery and oncology following Pathology in process Exam/Review of Systems Vital Signs Vitals Vital Signs Date Time Temp Pulse Resp B/P Pulse Ox O2 Delivery O2 Flow Rate FiO2 10/23/16 08:27 98.2 75 20 172/84 93 10/21/16 19:58 Room Air Intake and Output 10/22/16 10/22/16 10/23/16 15:00 23:00 07:00 Intake Total 3340 ml 800 ml Balance 3340 ml 800 ml Exam Constitutional: alert, oriented, well developed Psych: nl mood/affect, no complaints Head: atraumatic, normocephalic Eyes: EOMI, PERRL, nl conjunctiva, nl lids, nl sclera ENMT: nl external ears & nose, nl lips & teeth, nl nasal mucosa & septum Neck: non-tender, supple Respiratory: clear to auscultation, normal air movement Cardiovascular: nl pulses, regular rate and rhythm Gastrointestinal: nl liver, spleen, non-tender, soft Musculoskeletal: nl extremities to inspection, nl gait and stance Extremities: normal pulses Lymph: nl lymph nodes Results Result Diagram: 10/23/1625 10/23/16 0525 Results 24 hrs Laboratory Tests Test 10/22/16 16:15 10/23/16 05:25 Alpha Fetoprotein 1.98 CA 125 Antigen 11.1 CA 19-9 Antigen 973.0 H Anion Gap 13 Basophils # 0.1 Basophils % 1.0 Blood Morphology Comment Blood Urea Nitrogen 10 Calcium Level 8.1 L Carbon Dioxide Level 26 Chloride Level 108 Creatinine 0.95 Eosinophils # 0.3 Eosinophils % 3.0 Glucose Level 92 Hematocrit 27.5 L Hemoglobin 8.6 L Lymphocytes # 2.0 Lymphocytes % 22.0 Mean Corpuscular Hemoglobin 21.7 L Mean Corpuscular Hemoglobin Concent 31.3 L Mean Corpuscular Volume 69.3 L Mean Platelet Volume 8.1 Monocytes # 0.3 Monocytes % 3.0 Neutrophils # 6.6 Neutrophils % 71.0 Nucleated Red Blood Cells # Nucleated Red Blood Cells % Platelet Count 390 Potassium Level 3.4 L Red Blood Count 3.97 L Red Cell Distribution Width 33.2 H Sodium Level 144 White Blood Count 9.3 Medications Medications Current Medications Bisacodyl 10 mg 10 mg ONCE PRN PO constipation; Start 10/17/16 at 16:00 Sodium Chloride (NS) 1,000 ml @ 75 mls/hr [id number] IV Last administered on 08:33; Admin Dose 75 MLS/HR; Start 10/17/16 at 16:00 Docusate Sodium (Colace) 100 mg BID PO Last administered on 10/22/16 09:34; Admin Dose 100 MG; Start 10/17/16 at 21:00 Ondansetron HCl (Zofran Inj) 4 mg Q6H PRN IV NAUSEA AND/OR VOMITING; Start at 16:00 Pantoprazole (Protonix Tab) 40 mg DAILY@06 PO Last administered on 10/23/16 06: 10; Admin Dose 40 MG; Start 10/18/16 at 06:00 Hydralazine HCl (Apresoline) 10 mg Q6H PRN IV sbp>160mmhg Last administered on 10/20/16 21:33; Admin Dose 10 MG; Start 10/17/16 at 16:00 Hydrochlorothiazide (Hydrochlorothiazide) 25 mg DAILY PO Last administered on 08:17; Admin Dose 25 MG; Start 10/18/16 at 15:30 Acetaminophen (Tylenol Tab) 650 mg Q6H PRN PO PAIN AND OR ELEVATED TEMP; Start 10/18/16 at 21:30 Acetaminophen/ Hydrocodone Bitart ([place] (5/325)) 1 tab Q6H PRN PO PAIN Last administered on 10/18/16 21:12; Admin Dose 1 TAB; Start 10/18/16 at 21:30 Metoprolol Tartrate (Lopressor) 50 mg BID PO Last administered on 10/23/16 08: 18; Admin Dose 50 MG; Start 10/22/16 at 21:00 Enoxaparin Sodium (Lovenox) 40 mg DAILY SC Last administered on 10/23/16 08:24 ; Admin Dose 40 MG; Start 10/22/16 at 11:00 ALEJANDRA MARTINEZ Oct 23, 2016 09:57
--- NOTE | 2016-10-23 10:27 | PN ---
Date/Time of Note Date/Time of Note DATE: 10/23/16 TIME: 10:23 Assessment/Plan VTE Prophylaxis VTE Prophylaxis Intervention: LMWH Lines/Catheters IV C[facility]ter Type (from [facility]): Peripheral IV Urinary Cath still in place: No Assessment/Plan Chief Complaint/Hosp Course Assessment/Plan: 61 yo F with: 1. Symptomatic anemia: ?source - Improved post 4 unites of PRBC. Pelvic USS shows fibroid but patient is postmenopausal and has had no vaginal bleeding. Had EGD 2 days ago as well. Mass found in colon as well suspicious for colon ca (Ca 19-9 and CEA levels elevated). - appreciate GI, Heme Onc, and surgery consults - f/u rec's - most likey will need surgical resection - monitor CBC, Continue Iron supplementation - check iron profile 2. Hypertension: Suboptimal control. - PO meds, prn hydralazine 3. Mild CKD - likely 2/2 HTN. Patient likely is at baseline for CKD - continue IVF's 4. GI Propylaxis: PPI 5. LUE swelling - sec to thrombosed left cephalic vein. - Lovenox 40 mg sub Q daily and warm compresses TID. Problems: Subjective 24 Hr Interval Summary Free Text/Dictation Pt seen by GI, surgery, and Heme Onc teams. On diet now. Exam/Review of Systems Vital Signs Vitals Vital Signs Date Time Temp Pulse Resp B/P Pulse Ox O2 Delivery O2 Flow Rate FiO2 10/23/16 08:27 98.2 75 20 172/84 93 10/21/16 19:58 Room Air Intake and Output 10/22/16 10/22/16 10/23/16 15:00 23:00 07:00 Intake Total 3340 ml 800 ml Balance 3340 ml 800 ml Exam Constitutional: alert, oriented Head: normocephalic Eyes: PERRL ENMT: mucosa pink and moist Neck: supple Respiratory: clear to auscultation Cardiovascular: regular rate and rhythm, No murmurs/extra sounds Gastrointestinal: bowel sounds, non-tender, soft Extremities: + LUE swelling Neurological: nl mental status, nl speech, nl strength Results Result Diagram: 10/23/16 0525 10/23/16 0525 Results 24 hrs Laboratory Tests Test 10/22/16 16:15 10/23/16 05:25 Alpha Fetoprotein 1.98 CA 125 Antigen 11.1 CA 19-9 Antigen 973.0 H Anion Gap 13 Basophils # 0.1 Basophils % 1.0 Blood Morphology Comment Blood Urea Nitrogen 10 Calcium Level 8.1 L Carbon Dioxide Level 26 Chloride Level 108 Creatinine 0.95 Eosinophils # 0.3 Eosinophils % 3.0 Glucose Level 92 Hematocrit 27.5 L Hemoglobin 8.6 L Lymphocytes # 2.0 Lymphocytes % 22.0 Mean Corpuscular Hemoglobin 21.7 L Mean Corpuscular Hemoglobin Concent 31.3 L Mean Corpuscular Volume 69.3 L Mean Platelet Volume 8.1 Monocytes # 0.3 Monocytes % 3.0 Neutrophils # 6.6 Neutrophils % 71.0 Nucleated Red Blood Cells # Nucleated Red Blood Cells % Platelet Count 390 Potassium Level 3.4 L Red Blood Count 3.97 L Red Cell Distribution Width 33.2 H Sodium Level 144 White Blood Count 9.3 Medications Medications Current Medications Bisacodyl 10 mg 10 mg ONCE PRN PO constipation; Start 10/17/16 at 16:00 Sodium Chloride (NS) 1,000 ml @ 75 mls/hr [id number] IV Last administered on 08:33; Admin Dose 75 MLS/HR; Start 10/17/16 at 16:00 Docusate Sodium (Colace) 100 mg BID PO Last administered on 10/22/16 09:34; Admin Dose 100 MG; Start 10/17/16 at 21:00 Ondansetron HCl (Zofran Inj) 4 mg Q6H PRN IV NAUSEA AND/OR VOMITING; Start at 16:00 Pantoprazole (Protonix Tab) 40 mg DAILY@06 PO Last administered on 10/23/16 06: 10; Admin Dose 40 MG; Start 10/18/16 at 06:00 Hydralazine HCl (Apresoline) 10 mg Q6H PRN IV sbp>160mmhg Last administered on 10/20/16 21:33; Admin Dose 10 MG; Start 10/17/16 at 16:00 Hydrochlorothiazide (Hydrochlorothiazide) 25 mg DAILY PO Last administered on 08:17; Admin Dose 25 MG; Start 10/18/16 at 15:30 Acetaminophen (Tylenol Tab) 650 mg Q6H PRN PO PAIN AND OR ELEVATED TEMP; Start 10/18/16 at 21:30 Acetaminophen/ Hydrocodone Bitart ([place] (5/325)) 1 tab Q6H PRN PO PAIN Last administered on 10/18/16 21:12; Admin Dose 1 TAB; Start 10/18/16 at 21:30 Metoprolol Tartrate (Lopressor) 50 mg BID PO Last administered on 10/23/16 08: 18; Admin Dose 50 MG; Start 10/22/16 at 21:00 Enoxaparin Sodium 40 mg 40 mg DAILY SC Last administered on 10/23/16 08:24; Admin Dose 40 MG; Start 10/22/16 at 11:00 Potassium Chloride (KCl 40 MEQ/250 ML NS) 250 ml @ 62.5 mls/hr ONCE ONCE IVPB ; Start 10/23/16 at 10:30; Stop 10/23/16 at 14:29; Status RITIKA COATS Oct 23, 2016 10:27
[2016-10-23] MEDS ORDERED: POTASSIUM CHLORIDE 250 ML IVPB ONE (10:30)
[2016-10-23 13:20] LABS: IRON 29 ug/dl (35-150)
[2016-10-23 13:30] LABS: TOTAL IRON BINDING CAPACITY 352 ug/dl (241-421)
[2016-10-23 19:28] VITALS: BP 190/104; RESP 20
--- NOTE | 2016-10-23 21:49 | PN ---
Date/Time of Note Date/Time of Note DATE: 10/23/16 TIME: 18:40 Assessment/Plan Lines/Catheters IV Catheter Type (from [facility]): Peripheral IV Antonio in Place (from [facility]): No Assessment/Plan Assessment/Plan [facility] Progress Note Date of Service: 10/23/16 Today's Impression & Plan: Overall stable. Unfortunately, biopsies came back positive for malignancy. Given clinical picture, we should discuss neoadjuvant chemotherapy in a multidisciplinary fashion. Relaid the information to patient and answered all questions. Patient appeared to understand and agreed with the plans. With above assessment, I've recommended the following for today: 1. Consider oncology consultation 2. Multidisciplinary discussion regarding care 3. Liver dedicated IV contrast CT abd/pelvis when Cr improved 4. Possible neoadjuvant chemo, followed by restaging and radical right hemicolectomy Thank you again for your great care of this very pleasant patient and wonderful family. If there are any questions, please feel free to call me at [phone]. TOTAL VISIT TIME: 20 minutes of which more than half was spent in [id number] discussion with the patient, possibly including family, as well as coordination of care between multiple physicians and providers. Disclaimer: Inadvertent spelling or grammatical errors are likely due to EHR/ dictation software use and do not reflect on the overall quality of patient care. Updated Clinical Summary: A very pleasant 61-year-old lady with comorbid issue of body mass index of 34.8 and no other known major medical issues admitted through the emergency department at [facility] on 10/17/2016 initially with anemia, that lead to workup showing ascending colon primary malignancy with lymphadenopathy around it. Biopsy positive for moderately to poorly- differentiated adenocarcinoma with ulceration.Tumor appeared to be at least a stage II or perhaps a stage III disease depending on the extent of the lymphadenopathy. Slight elevation in CEA, but significant elevation in CA 19-9. Comorbidities: 1. Right colon adenocarcinoma with lymphadenopathy 2. BMI 34.8 Subjective: No major events or complaints; no abd pain and under control with medications; no n/v/d; no sob or cp; + flatus; + BM and normal; + activity Objective: Vitals: See below Exam: GENERAL: On exam, the patient was sitting in a chair and appeared to be comfortable and in no acute distress. ABDOMEN: Soft, nontender and nondistended. There are no peritoneal signs or guarding. SKIN: Skin appears to be pink and feels warm to touch. NEUROLOGIC: Patient is awake, alert, and follows commands appropriately. Exam/Review of Systems Vital Signs Vitals Vital Signs Date Time Temp Pulse Resp B/P Pulse Ox O2 Delivery O2 Flow Rate FiO2 10/23/16 19:28 98.3 74 20 190/104 97 10/21/16 19:58 Room Air Intake and Output 10/22/16 10/22/16 10/23/16 15:00 23:00 07:00 Intake Total 3340 ml 800 ml Balance 3340 ml 800 ml Results Result Diagram: 10/23/16 0525 10/23/16 0525 KEELY LOPEZ M.D. Oct 23, 2016 21:49
[2016-10-23] MEDS: hydrALAzine 20 MG INJ IV PRN (23:52)
[2016-10-24] MEDS: SOD CHLORIDE 0.9% 1,000 ML IV SCH ×3 (02:18→20:55)
[2016-10-24 04:00] VITALS: BP 139/84; PULSE 74; RESP 18
[2016-10-24] MEDS: PANTOPRAZOLE (EC) 40 MG TAB PO SCH (05:35)
[2016-10-24 06:20] LABS: HEMATOCRIT 28.8 % (37.0-47.0); HEMOGLOBIN 9.1 g/dl (12.0-16.0); MEAN CORPUSCULAR HEMOGLOBIN 21.8 pg (29.0-33.0); MEAN CORPUSCULAR HGB CONC 31.6 g/dl (32.0-37.0); MEAN CORPUSCULAR VOLUME 68.9 fl (82.0-101.0); MEAN PLATELET VOLUME 8.1 fl (7.4-10.4); PLATELET COUNT 401 10^3/UL (140-440); RED BLOOD COUNT 4.18 10^6/ul (4.20-5.40); RED CELL DISTRIBUTION WIDTH 33.2 % (11.5-14.5); UNCORRECTED WBC 9.1 10^3/ul (4.8-10.8); WHITE BLOOD COUNT 9.1 10^3/ul (4.8-10.8)
[2016-10-24 07:04] LABS: POTASSIUM 3.5 mmol/L (3.5-5.1)
[2016-10-24 07:06] LABS: CONDITION 1; CREATININE 0.99 mg/dl (0.44-1.00); LH ANALYZER COMMENTS 1; SUSPECT 1
[2016-10-24 07:07] LABS: CALCIUM 8.9 mg/dl (8.4-10.2)
[2016-10-24 07:19] VITALS: BP 142/81; RESP 20
--- NOTE | 2016-10-24 08:32 | PN ---
Date/Time of Note Date/Time of Note DATE: 10/24/16 TIME: 08:25 Assessment/Plan VTE Prophylaxis VTE Prophylaxis Intervention: ambulation Lines/Catheters IV [facility]ter Type (from [facility]): Peripheral IV Urinary Cath still in place: No Assessment/Plan Chief Complaint/Hosp Course 61 yo woman with c/o weakness found to be anemic with obvious iron deficiency anemia. Colonoscopy showed obvious tumor in right colon. Biopsy results are pending. At present she is energetic and comfortable. Her main complaint is that she is hungry. Problems: Assessment/Plan Pt found to have adenocarcinoma consistent with colon primary. CT has shown possible adenopathy. I would favor surgery both for therapy and for staging. Adjuvant chemotherapy would be offered depending upon the staging. At this point it seems likely that she would need such therapy since node positivity is expected. An Oncotype Dx study couuld also be sent if she were node negative. Note that both CA 19-9 and CEA were positive. However, I would not rely on these markers to make a diagnosis. Dr. Islas's plan to get specific imaging to look for pancreatic tumor is reasonable but not yet done. Subjective 24 Hr Interval Summary Free Text/Dictation Pt is alert and ate full breakfast. Exam/Review of Systems Vital Signs Vitals Vital Signs Date Time Temp Pulse Resp B/P Pulse Ox O2 Delivery O2 Flow Rate FiO2 10/24/16 07:19 98.5 72 20 142/81 94 10/24/16 04:00 Room Air Intake and Output 10/23/16 10/23/16 10/24/16 15:00 23:00 07:00 Intake Total 920 ml 600 ml 1550 ml Balance 920 ml 600 ml 1550 ml Exam Constitutional: alert, oriented Psych: no complaints Head: normocephalic Eyes: other (pallor) Neck: supple Respiratory: clear to auscultation Cardiovascular: regular rate and rhythm Gastrointestinal: nl liver, spleen, non-tender, soft Extremities: normal pulses Neurological: nl mental status, nl speech, nl strength Results Result Diagram: 10/24/16 0520 10/24/16 0520 Results 24 hrs Laboratory Tests Test 10/23/16 12:30 10/24/16 05:20 Iron Level 29 L Percent Iron Saturation 8 L Total Iron Binding Capacity 352 Anion Gap 17 H Blood Morphology Comment Blood Urea Nitrogen 12 Calcium Level 8.9 Carbon Dioxide Level 26 Chloride Level 103 Creatinine 0.99 Glucose Level 105 Hematocrit 28.8 L Hemoglobin 9.1 L Mean Corpuscular Hemoglobin 21.8 L Mean Corpuscular Hemoglobin Concent 31.6 L Mean Corpuscular Volume 68.9 L Mean Platelet Volume 8.1 Nucleated Red Blood Cells # Platelet Count 401 Potassium Level 3.5 Red Blood Count 4.18 L Red Cell Distribution Width 33.2 H Sodium Level 142 White Blood Count 9.1 Medications Medications Current Medications Bisacodyl 10 mg 10 mg ONCE PRN PO constipation; Start 10/17/16 at 16:00 Sodium Chloride (NS) 1,000 ml @ 75 mls/hr [id number] IV Last administered on 02:18; Admin Dose 75 MLS/HR; Start 10/17/16 at 16:00 Docusate Sodium (Colace) 100 mg BID PO Last administered on 10/23/16 20:46; Admin Dose 100 MG; Start 10/17/16 at 21:00 Ondansetron HCl (Zofran Inj) 4 mg Q6H PRN IV NAUSEA AND/OR VOMITING; Start at 16:00 Pantoprazole (Protonix Tab) 40 mg DAILY@06 PO Last administered on 10/24/16 05: 35; Admin Dose 40 MG; Start 10/18/16 at 06:00 Hydralazine HCl (Apresoline) 10 mg Q6H PRN IV sbp>160mmhg Last administered on 10/23/16 23:52; Admin Dose 10 MG; Start 10/17/16 at 16:00 Hydrochlorothiazide (Hydrochlorothiazide) 25 mg DAILY PO Last administered on 08:17; Admin Dose 25 MG; Start 10/18/16 at 15:30 Acetaminophen (Tylenol Tab) 650 mg Q6H PRN PO PAIN AND OR ELEVATED TEMP; Start 10/18/16 at 21:30 Acetaminophen/ Hydrocodone Bitart ([place] (5/325)) 1 tab Q6H PRN PO PAIN Last administered on 10/18/16 21:12; Admin Dose 1 TAB; Start 10/18/16 at 21:30 Metoprolol Tartrate (Lopressor) 50 mg BID PO Last administered on 10/23/16 20: 46; Admin Dose 50 MG; Start 10/22/16 at 21:00 Enoxaparin Sodium (Lovenox) 40 mg DAILY SC Last administered on 10/23/16 08:24 ; Admin Dose 40 MG; Start 10/22/16 at 11:00 EUGENIA GLASS MD Oct 24, 2016 08:32
--- NOTE | 2016-10-24 08:44 | CONS ---
Date/Time of Note Date/Time of Note DATE: 10/24/16 TIME: 08:42 Assessment/Plan Assessment/Plan Additional Assessment/Plan Severe unexplained microcytic, hypochromic anemia. Status post EGD: Linear duodenal ulcer with no stigmata of active bleeding, H. pylori pos Status post colonoscopy: Large ulcerated mass, proximal ascending colon. biopsied and localization tattooed, pos for adenocarcinoma Hypertension Dyslipidemia Obesity Plan: Advance diet as tolerated Monitor hemoglobin every 6 hours, transfuse 2 units for hemoglobin less than 7.5 Start treatment for H. pylori 7 days Surgery and HemeOnc following GI sign off Further recommendations pending clinical course Patient seen in collaboration with Dr. Garza Consultation Date/Type/Reason Admit Date/Time Oct 17, 2016 at 14:53 Type of Consultation: Gastroenterology 24 HR Interval Summary Free Text/Dictation Serology completed, positive for H. pylori and adenocarcinoma Start treatment for H. pylori GI sign off Exam/Review of Systems Vital Signs Vitals Vital Signs Date Time Temp Pulse Resp B/P Pulse Ox O2 Delivery O2 Flow Rate FiO2 10/24/16 07:19 98.5 72 20 142/81 94 10/24/16 04:00 Room Air Intake and Output 10/23/16 10/23/16 10/24/16 15:00 23:00 07:00 Intake Total 920 ml 600 ml 1550 ml Balance 920 ml 600 ml 1550 ml Exam Constitutional: alert, oriented, well developed Psych: nl mood/affect, no complaints Head: atraumatic, normocephalic Eyes: EOMI, PERRL, nl conjunctiva, nl lids, nl sclera ENMT: nl external ears & nose, nl lips & teeth, nl nasal mucosa & septum Neck: non-tender, supple Respiratory: clear to auscultation, normal air movement Cardiovascular: nl pulses, regular rate and rhythm Gastrointestinal: nl liver, spleen, non-tender, soft Musculoskeletal: nl extremities to inspection, nl gait and stance Extremities: normal pulses Lymph: nl lymph nodes Results Result Diagram: 10/24/16 0520 10/24/16 0520 Results 24 hrs Laboratory Tests Test 10/23/16 12:30 10/24/16 05:20 Iron Level 29 L Percent Iron Saturation 8 L Total Iron Binding Capacity 352 Anion Gap 17 H Blood Morphology Comment Blood Urea Nitrogen 12 Calcium Level 8.9 Carbon Dioxide Level 26 Chloride Level 103 Creatinine 0.99 Glucose Level 105 Hematocrit 28.8 L Hemoglobin 9.1 L Mean Corpuscular Hemoglobin 21.8 L Mean Corpuscular Hemoglobin Concent 31.6 L Mean Corpuscular Volume 68.9 L Mean Platelet Volume 8.1 Nucleated Red Blood Cells # Platelet Count 401 Potassium Level 3.5 Red Blood Count 4.18 L Red Cell Distribution Width 33.2 H Sodium Level 142 White Blood Count 9.1 Medications Medications Current Medications Bisacodyl 10 mg 10 mg ONCE PRN PO constipation; Start 10/17/16 at 16:00 Sodium Chloride (NS) 1,000 ml @ 75 mls/hr [id number] IV Last administered on 02:18; Admin Dose 75 MLS/HR; Start 10/17/16 at 16:00 Docusate Sodium (Colace) 100 mg BID PO Last administered on 10/23/16 20:46; Admin Dose 100 MG; Start 10/17/16 at 21:00 Ondansetron HCl (Zofran Inj) 4 mg Q6H PRN IV NAUSEA AND/OR VOMITING; Start at 16:00 Pantoprazole (Protonix Tab) 40 mg DAILY@06 PO Last administered on 10/24/16 05: 35; Admin Dose 40 MG; Start 10/18/16 at 06:00 Hydralazine HCl (Apresoline) 10 mg Q6H PRN IV sbp>160mmhg Last administered on 10/23/16 23:52; Admin Dose 10 MG; Start 10/17/16 at 16:00 Hydrochlorothiazide (Hydrochlorothiazide) 25 mg DAILY PO Last administered on 08:17; Admin Dose 25 MG; Start 10/18/16 at 15:30 Acetaminophen (Tylenol Tab) 650 mg Q6H PRN PO PAIN AND OR ELEVATED TEMP; Start 10/18/16 at 21:30 Acetaminophen/ Hydrocodone Bitart ([place] (5/325)) 1 tab Q6H PRN PO PAIN Last administered on 10/18/16 21:12; Admin Dose 1 TAB; Start 10/18/16 at 21:30 Metoprolol Tartrate (Lopressor) 50 mg BID PO Last administered on 10/23/16 20: 46; Admin Dose 50 MG; Start 10/22/16 at 21:00 Enoxaparin Sodium (Lovenox) 40 mg DAILY SC Last administered on 10/23/16 08:24 ; Admin Dose 40 MG; Start 10/22/16 at 11:00 ALEJANDRA MARTINEZ Oct 24, 2016 08:44
[2016-10-24] MEDS: HYDROCHLOROTHIAZIDE 25 MG TAB PO SCH (08:51)
[2016-10-24] MEDS: DOCUSATE SODIUM 100 MG CAP PO SCH ×2 (08:52→20:50)
[2016-10-24] MEDS: METOPROLOL 50 MG TAB PO SCH ×2 (08:52→20:51)
[2016-10-24] MEDS: ENOXAPARIN 40 MG/0.4 ML SYG SC SCH (09:01)
--- NOTE | 2016-10-24 09:52 | PN ---
Date/Time of Note Date/Time of Note DATE: 10/24/16 TIME: 09:43 Assessment/Plan VTE Prophylaxis VTE Prophylaxis Intervention: LMWH Lines/Catheters IV Catheter Type (from [facility]): Peripheral IV Urinary Cath still in place: No Assessment/Plan Chief Complaint/Hosp Course Assessment/Plan: 61 yo F with: 1. Symptomatic anemia with new colon mass: ?source - Improved post 4 unites of PRBC earlier this admission. Pelvic USS shows fibroid but patient is postmenopausal and has had no vaginal bleeding. Had EGD/colonscopy 3 days ago as well. Mass found in colon as well suspicious for colon ca. - appreciate GI, Heme Onc, and surgery consults - f/u rec's - most likely will need surgical resection for therapy and for staging. - awaiting liver dedicated IV contrast CT abd/pelvis - for today - f/u results. - monitor CBC, Continue Iron supplementation - check iron profile 2. Hypertension: Suboptimal control. - PO meds, prn hydralazine 3. Mild CKD - likely 2/2 HTN. Patient likely is at baseline for CKD - continue IVF's 4. GI Propylaxis: PPI 5. LUE swelling - sec to thrombosed left cephalic vein. - Lovenox 40 mg sub Q daily and warm compresses TID. Problems: Subjective 24 Hr Interval Summary Free Text/Dictation No acute events overnight, less arm pain/swelling, no abd pain. Exam/Review of Systems Vital Signs Vitals Vital Signs Date Time Temp Pulse Resp B/P Pulse Ox O2 Delivery O2 Flow Rate FiO2 10/24/16 07:19 98.5 72 20 142/81 94 10/24/16 04:00 Room Air Intake and Output 10/23/16 10/23/16 10/24/16 15:00 23:00 07:00 Intake Total 920 ml 600 ml 1550 ml Balance 920 ml 600 ml 1550 ml Exam Constitutional: alert, oriented Head: normocephalic Eyes: PERRL ENMT: mucosa pink and moist Neck: supple Respiratory: clear to auscultation Cardiovascular: regular rate and rhythm, No murmurs/extra sounds Gastrointestinal: bowel sounds, non-tender, soft Extremities: less LUE swelling Neurological: nl mental status, nl speech, nl strength Results Result Diagram: 10/24/1651910/24/16 0520 Results 24 hrs Laboratory Tests Test 10/23/16 12:30 10/24/16 05:20 Iron Level 29 L Percent Iron Saturation 8 L Total Iron Binding Capacity 352 Anion Gap 17 H Blood Morphology Comment Blood Urea Nitrogen 12 Calcium Level 8.9 Carbon Dioxide Level 26 Chloride Level 103 Creatinine 0.99 Glucose Level 105 Hematocrit 28.8 L Hemoglobin 9.1 L Mean Corpuscular Hemoglobin 21.8 L Mean Corpuscular Hemoglobin Concent 31.6 L Mean Corpuscular Volume 68.9 L Mean Platelet Volume 8.1 Nucleated Red Blood Cells # Platelet Count 401 Potassium Level 3.5 Red Blood Count 4.18 L Red Cell Distribution Width 33.2 H Sodium Level 142 White Blood Count 9.1 Medications Medications Current Medications Bisacodyl 10 mg 10 mg ONCE PRN PO constipation; Start 10/17/16 at 16:00 Sodium Chloride (NS) 1,000 ml @ 75 mls/hr [id number] IV Last administered on 02:18; Admin Dose 75 MLS/HR; Start 10/17/16 at 16:00 Docusate Sodium (Colace) 100 mg BID PO Last administered on 10/24/16 08:52; Admin Dose 100 MG; Start 10/17/16 at 21:00 Ondansetron HCl (Zofran Inj) 4 mg Q6H PRN IV NAUSEA AND/OR VOMITING; Start at 16:00 Pantoprazole (Protonix Tab) 40 mg DAILY@06 PO Last administered on 10/24/16 05: 35; Admin Dose 40 MG; Start 10/18/16 at 06:00 Hydralazine HCl (Apresoline) 10 mg Q6H PRN IV sbp>160mmhg Last administered on 10/23/16 23:52; Admin Dose 10 MG; Start 10/17/16 at 16:00 Hydrochlorothiazide (Hydrochlorothiazide) 25 mg DAILY PO Last administered on 08:51; Admin Dose 25 MG; Start 10/18/16 at 15:30 Acetaminophen (Tylenol Tab) 650 mg Q6H PRN PO PAIN AND OR ELEVATED TEMP; Start 10/18/16 at 21:30 Acetaminophen/ Hydrocodone Bitart ([place] (5/325)) 1 tab Q6H PRN PO PAIN Last administered on 10/18/16 21:12; Admin Dose 1 TAB; Start 10/18/16 at 21:30 Metoprolol Tartrate (Lopressor) 50 mg BID PO Last administered on 10/24/16 08: 52; Admin Dose 50 MG; Start 10/22/16 at 21:00 Enoxaparin Sodium (Lovenox) 40 mg DAILY SC Last administered on 10/24/16 09:01 ; Admin Dose 40 MG; Start 10/22/16 at 11:00 Metronidazole (Flagyl) 500 mg BID PO ; Start 10/24/16 at 09:00; Stop 10/31/16 at 08:59 Amoxicillin (Amoxicillin) 1,000 mg BID PO ; Start 10/24/16 at 10:00; Stop at 09:59 RITIKA KIMBLE Oct 24, 2016 09:52
[2016-10-24] MEDS: AMOXICILLIN 500 MG CAP PO SCH ×3 (10:00→20:50)
[2016-10-24] MEDS: metroNIDAZOLE 500 MG TAB PO SCH ×2 (10:16→20:50)
[2016-10-24 10:20] LABS: EOSINOPHILS # 0.9 10^3/ul (0.0-0.5); LYMPHOCYTES # 1.1 10^3/ul (0.8-2.9); NEUTROPHIL # 5.6 10^3/ul (1.6-7.5)
[2016-10-24] MEDS ORDERED: IOHEXOL 100 ML ONE (10:35)
[2016-10-24] MEDS ORDERED: SOD CHLORIDE 0.9% 100 ML ONE (10:35)
[2016-10-24] MEDS ORDERED: BARIUM SULF 2% 450 ML BTL (BERRY SMOOTHIE) PO ONE (10:46)
[2016-10-24] MEDS ORDERED: IOHEXOL 350MG/ML 50 ML BTL ONE (11:48)
--- NOTE | 2016-10-24 16:56 | RADRPT ---
PROCEDURE: CT Abdomen and Pelvis with and without Contrast CLINICAL INDICATION: Ascending colon malignancy preop planning TECHNIQUE: Transaxial images were obtained through the abdomen prior to intravenous contrast admin istration. Following the intravenous administration contrast transaxial images were made through th e abdomen during arterial phase and then through the abdomen and portal venous phase. Delayed image s were made through the abdomen and pelvis. The study was performed on a multi-slice scanner. Oral c ontrast had previously been given. Sagittal and coronal re-formations were subsequently reconstructe d. One or more of the following dose reduction techniques were used: - Automated exposure control. - Adjustment of the mA and/or kV according to patient size. - Use of iterative reconstruction technique. Radiation dose: CTDIvol = 72.01 mGy; DLP = 2861.10 mGy-cm. COMPARISON: 10/21/2016 FINDINGS: Lung bases: The lung bases appear unremarkable. The heart is moderately enlarged. Liver: Normal in size and in attenuation. There is no focal lesion. The hepatic veins and portal vei ns appear patent. Gallbladder: The gallbladder is contracted. No radiopaque stone is identified. Bile ducts: The intra and extrahepatic bile ducts are normal in caliber. Pancreas: Appears normal with no mass or inflammation evident. Spleen: Normal in size with no focal lesion. Adrenals: Normal with no mass identified. Kidneys, ureters and bladder: The right kidney appears normal and there is no hydronephrosis. Multi ple cysts are seen within the left kidney the largest measuring 3.1 cm in diameter seen within the i nferior pole. An exophytic 2.2 cm cyst is seen extend medially off the superior pole of the left ki dney and several smaller cysts are evident. There is no left hydronephrosis. Both ureters and the bladder appear normal. Reproductive organs: The uterus appears unremarkable and no adnexal mass is identified. Stomach, bowel, and mesentery: There is considerable bowel wall thickening involving the ascending c olon over a length of approximately 8.2 cm. There is stranding in the adjacent fat. There is no ev idence of bowel obstruction. True debris is seen within the stomach. Appendix: The vermiform appendix is not discretely identified. Peritoneum: No free intraperitoneal fluid or air is identified. Aorta: There is atherosclerotic vascular calcification but no abdominal aortic aneurysm is evident. IVC: Unremarkable. Lymph nodes: Mesenteric nodes are seen within the right abdomen up to 8 mm in short diameter. Osseous structures: Moderate degenerative changes seen to the spine with no osseous destruction iden tified. IMPRESSION: 1. There is again extensive bowel wall thickening involving the ascending colon over a length of ap proximately 8.2 cm with stranding extending into the adjacent fat. No diverticuli are evident. Alt abe this apparently has been biopsied as malignant, an inflammatory process could have a similar a ppearance. This has not changed since the previous study 10/21/2016. There is no evidence of bowel obstruction. 2. The liver appears unremarkable with no focal lesion. 3. Mesenteric nodes are again seen in the right abdomen up to 8 mm in short diameter. 4. The right kidney appears unremarkable while multiple left renal cysts are again evident. There is no evidence of urinary outflow obstruction or ureterolithiasis. 5. No free fluid is identified. 6. Cardiomegaly. 7. Degenerative spine changes. Physician Henrietta Date Time Electronically viewed and signed by Physician Henrietta on 10/24/2016 16:56 /
--- NOTE | 2016-10-24 17:05 | PN ---
Date/Time of Note Date/Time of Note DATE: 10/24/16 TIME: 16:58 Assessment/Plan Lines/Catheters IV Catheter Type (from Nrs): Saline Lock Antonio in Place (from Nrs): No Assessment/Plan Assessment/Plan [facility] Progress Note Date of Service: 10/24/16 Today's Impression & Plan: Overall stable with preoperative stage T3-T4N(possible up to 2b)M0 which puts her at approximately stage 2-3. After careful review of the data and NCCN recommendations, I agree with Dr. García in surgical approach first, followed by chemotherapy. Patient herself was not in the room today, but I discussed briefly with her daughter (prior to availability of liver CT). Answered all questions. With above assessment, I've recommended the following for today: 1. Continue with plans to discharge home 2. F/u with me in 1-2 weeks 3. Will ask my office to please assist with scheduling patient for a laparoscopic, possible open partial right radical hemicolectomy 4. Multidisciplinary discussion regarding care 5. Consideration for sending pathology specimen for KRAS and MSI evaluation Thank you again for your great care of this very pleasant patient and wonderful family. If there are any questions, please feel free to call me at [phone]. TOTAL VISIT TIME: 20 minutes of which more than half was spent in [id number] discussion with the patient, possibly including family, as well as coordination of care between multiple physicians and providers. Disclaimer: Inadvertent spelling or grammatical errors are likely due to EHR/ dictation software use and do not reflect on the overall quality of patient care. Updated Clinical Summary: A very pleasant 61-year-old lady with comorbid issue of body mass index of 34.8 and no other known major medical issues admitted through the emergency department at [facility] on 10/17/2016 initially with anemia, that lead to workup showing ascending colon primary malignancy with lymphadenopathy around it. Biopsy positive for moderately to poorly- differentiated adenocarcinoma with ulceration.Tumor appeared to be at least a stage II or perhaps a stage III disease depending on the extent of the lymphadenopathy. Slight elevation in CEA, but significant elevation in CA 19-9. Comorbidities: 1. Right colon adenocarcinoma with lymphadenopathy 2. BMI 34.8 Subjective: No major reported events or complaints; no major reported abd pain and under control with medications; no n/v/d; no sob or cp; + flatus; + BM and normal; + activity Objective: Vitals: See below Exam: Patient not in the room Exam/Review of Systems Vital Signs Vitals Vital Signs Date Time Temp Pulse Resp B/P Pulse Ox O2 Delivery O2 Flow Rate FiO2 10/24/16 07:19 98.5 72 20 142/81 94 10/24/16 04:00 Room Air Intake and Output 10/23/16 10/23/16 10/24/16 15:00 23:00 07:00 Intake Total 920 ml 600 ml 1550 ml Balance 920 ml 600 ml 1550 ml Results Result Diagram: 10/24/16 0520 10/24/16 0520 KEELY LOPEZ M.D. Oct 24, 2016 17:05
[2016-10-24 20:00] VITALS: BP 157/94; RESP 20
[2016-10-25] MEDS: PANTOPRAZOLE (EC) 40 MG TAB PO SCH (05:37)
[2016-10-25 06:14] LABS: POTASSIUM 3.6 mmol/L (3.5-5.1)
[2016-10-25 06:16] LABS: CREATININE 1.06 mg/dl (0.44-1.00)
[2016-10-25 06:23] LABS: HEMATOCRIT 29.3 % (37.0-47.0); HEMOGLOBIN 9.2 g/dl (12.0-16.0); MEAN CORPUSCULAR HEMOGLOBIN 21.8 pg (29.0-33.0); MEAN CORPUSCULAR HGB CONC 31.4 g/dl (32.0-37.0); MEAN CORPUSCULAR VOLUME 69.5 fl (82.0-101.0); MEAN PLATELET VOLUME 8.4 fl (7.4-10.4); PLATELET COUNT 434 10^3/UL (140-440); RED BLOOD COUNT 4.22 10^6/ul (4.20-5.40); RED CELL DISTRIBUTION WIDTH 33.1 % (11.5-14.5); UNCORRECTED WBC 7.4 10^3/ul (4.8-10.8); WHITE BLOOD COUNT 7.4 10^3/ul (4.8-10.8)
[2016-10-25 06:51] LABS: CONDITION 1; LH ANALYZER COMMENTS 1; SUSPECT 1
[2016-10-25 08:09] VITALS: BP 120/60; RESP 20
[2016-10-25] MEDS: AMOXICILLIN 500 MG CAP PO SCH (09:18)
[2016-10-25] MEDS: metroNIDAZOLE 500 MG TAB PO SCH (09:19)
[2016-10-25] MEDS: DOCUSATE SODIUM 100 MG CAP PO SCH (09:19)
[2016-10-25] MEDS: HYDROCHLOROTHIAZIDE 25 MG TAB PO SCH (09:20)
[2016-10-25] MEDS: METOPROLOL 50 MG TAB PO SCH (09:20)
[2016-10-25] MEDS: ENOXAPARIN 40 MG/0.4 ML SYG SC SCH (09:53)
--- NOTE | 2016-10-25 10:01 | PDOCDIS ---
Discharge Instructions CONDITION Patient Condition: Stable HOME CARE INSTRUCTIONS: Special Diet: REGULAR DIET ACTIVITY: Activity Restrictions: Slowly Increase Activity FOLLOW UP/APPOINTMENTS Appointments Please see the oncologist and surgeon in the clinic in 1 week. And take your medications as prescribed. RITIKA KIMBLE Oct 25, 2016 10:00
[2016-10-25] MEDS ORDERED: LOV40I SC (10:04)
[2016-10-25] MEDS ORDERED: FER325 PO (10:04)
[2016-10-25] MEDS ORDERED: HYD25 PO (10:04)
[2016-10-25] MEDS ORDERED: PANT40TA4 PO (10:04)
[2016-10-25] MEDS ORDERED: AMO500 PO (10:04)
[2016-10-25] MEDS ORDERED: METO-429 PO (10:04)
[2016-10-25] MEDS ORDERED: DOCU-216 PO (10:04)
[2016-10-25] MEDS ORDERED: METR500T PO (10:04)
--- NOTE | 2016-10-25 10:11 | PN ---
DATE: 10/25/2016 SUBJECTIVE: The patient is feeling well now. She is not complaining of abdominal pain. No nausea or vomiting. No fevers, chills or night sweats. OBJECTIVE: VITAL SIGNS: Temperature 96.8, pulse 62 per minute and regular, respirations 20, blood pressure 120 /60, pulse oximetry 96% on room air. SKIN: No ecchymosis, no petechiae or rashes. HEENT: No mucosal lesions. No scleral icterus. NECK: Supple, no jugular venous distention or thyroid enlargement. CHEST: Clear to auscultation and percussion. No rhonchi, wheezes, rales or rubs. NODES: No palpable lymphadenopathy in lymph node bearing area. ABDOMEN: Soft, no masses, no ascites. Bowel sounds are active. EXTREMITIES: Good range of motion. No clubbing, no edema or cyanosis. No palpable cords or Homans sign. NEUROLOGIC: Normal. LABORATORY DATA: White count 7400, hemoglobin 9.2, hematocrit 29.3, MCV 69.5 and platelet count is 434,000. Sodium 134, potassium 3.6, creatinine 1.06. BUN is 12. The patient did have a CT scan of the abdomen and pelvis repeated yesterday. This demonstrated the previously noted thickening in the ascending colon with a length of 8.2 cm. There were some mesente avni lymph nodes noted on the right abdomen up to 8 mm in diameter. There was no evidence of any hep atic or pancreatic abnormalities. There was no retroperitoneal lymphadenopathy, no evidence of bili leno obstruction. IMPRESSION: 1. Colon carcinoma. 2. Iron deficiency secondary to gastrointestinal bleeding. PLAN: There has been a mention regarding the possible neoadjuvant chemotherapy. At this point ther e is no evidence of any benefit from neoadjuvant chemotherapy or chemoradiation therapy in colon car cinoma. There is presently a study under the name of Benson to determine if there is actually any b enefit. At the present time, the recommendation is for patients to have surgery. If there is any evidence o f extension into other organs the patient should undergo a multivisceral resection. There does not appear to be such involvement in this patient. A question has also been raised about the patient's elevation of CA 19-9. The patient has a CA 19-9 of 793 while CEA is only 7.2. CA 19-9 may be seen in benign settings such as with patients with hepatobiliary disease. Although i t is felt to be a marker for pancreatobiliary malignancy. It may also be elevated in colorectal car cinoma which I feel is the case at this time. The patient also does demonstrate iron deficiency. On admission, her hemoglobin was only 5. Given this hemoglobin and the patient's weight of 100 kilograms it is estimated that she would require 345 0 mg of elemental iron in order to replete her iron stores. Some of this has been replaced with 3 u nits of packed red blood cells. The patient has also received ferric sodium gluconate. She has rec eived a total of 625 mg of elemental iron. I believe the patient would benefit from further such ir on infusions. Dictated By: VERONICA GAMINO MD, SR/ANNAMARIA Conf#: [id number] DID#: [id number]
--- NOTE | 2016-10-25 10:40 | DS ---
DATE OF ADMISSION: 10/17/2016 DATE OF DISCHARGE: 10/25/2016 HOSPITAL COURSE: This is a 61-year-old female originally admitted on 10/17/2016 being discharged ho va on 10/25/2016. The patient came in with weakness with exertion. She was found with significant anemia on admission. She was transfused 4 units of PRBC and seen on the med/surg floor by GI team, surgery team and hematology/oncology team. The patient eventually was found with a new colon mass o n imaging studies. She underwent an EGD and colonoscopy as well and there was a positive H. pylori test from the EGD and on the colonoscopy, there was a large ulcerated mass in the proximal ascending colon positive for moderate to poorly differentiated adenocarcinoma based on the biopsy results and the patient was started on amoxicillin and Flagyl. She also had some blood pressure issues that we re controlled with new antihypertensives that were started. She also had a cephalic left upper extr emity blood clot that was treated first with warm compresses and then with Lovenox. Patient was rec ommended for surgery and neoadjuvant chemotherapy in a multidisciplinary fashion and preoperative st aging was found to be T3, T4 and possible up to IIB, M0 which puts her about a stage II to III and p atient has clinically improved. Her weakness symptoms improved after blood transfusion. She was ab le to ambulate and tolerate a p.o. diet and because of the staging of the cancer. The patient will be scheduled for laparoscopic, possible open partial right radical hemicolectomy to be done in 1 to 2 weeks as an outpatient and then afterwards probably neoadjuvant chemotherapy to be done by hematol ogy/oncology team as an outpatient. The patient will be discharged home today in improved condition . She will be sent with: 1. Amoxicillin 1000 mg b.i.d. for 7 days. 2. Colace 100 mg b.i.d. 3. Lovenox 40 mg subQ daily. 4. Ferrous sulfate 325 mg b.i.d. 5. Hydrochlorothiazide 25 mg daily. 6. Lopressor 50 mg b.i.d. 7. Flagyl 500 mg b.i.d. for 7 days. 8. Protonix 40 mg daily. Again, she will follow up with general surgery team and hematology/oncology team as mentioned above. FINAL DIAGNOSES: 1. Weakness secondary to symptomatic anemia, status post PRBC transfusion. 2. Iron deficiency anemia, most likely secondary to colon cancer, status post IV iron treatment and now on p.o. iron. 3. Large ulcerated proximal ascending colon mass biopsied, positive for adenocarcinoma. Awaiting o utpatient resection in the next 1 to 2 weeks, stage II to III. 4. Positive H. pylori infection, now on antibiotic treatment. 5. Mild CKD, improved. 6. Left upper extremity cephalic vein blood clot, now on Lovenox. 7. Essential hypertension. 8. Depression. Time spent discharging patient 45 minutes. Dictated By: RITIKA OLIVEIRA Conf#: [id number] DID#: [id number]
[2016-10-25 10:58] LABS: BASOPHIL # 0.1 10^3/ul (0.0-0.1); EOSINOPHILS # 0.5 10^3/ul (0.0-0.5); LYMPHOCYTES # 1.7 10^3/ul (0.8-2.9); MONOCYTE # 0.5 10^3/ul (0.3-0.9); NEUTROPHIL # 4.4 10^3/ul (1.6-7.5)
[2016-10-25] MEDS ORDERED: SOD FERRIC GLUC COMPLX 125 MG in SOD CHLORIDE 0.9% 100 ML IVPB ONE (12:00)
--- NOTE | 2016-10-25 14:52 | PN ---
Date/Time of Note Date/Time of Note DATE: 10/25/16 TIME: 14:45 Assessment/Plan Lines/Catheters IV Catheter Type (from Nrs): Saline Lock Antonio in Place (from Nrs): No Assessment/Plan Assessment/Plan [facility] Progress Note Date of Service: 10/25/16 Today's Impression & Plan: Overall stable. Discussed at length with patient, her son and a new daughter and answered all questions. With above assessment, I've recommended the following for today: 1. Ok to discharge home from my standpoint 2. F/u with me in 1-2 weeks 3. Will ask my office to please assist with scheduling patient for a laparoscopic, possible open partial right radical hemicolectomy 4. Multidisciplinary discussion regarding care 5. Consideration for sending pathology specimen for KRAS and MSI evaluation Thank you again for your great care of this very pleasant patient and wonderful family. If there are any questions, please feel free to call me at [phone]. TOTAL VISIT TIME: 20 minutes of which more than half was spent in [id number] discussion with the patient, possibly including family, as well as coordination of care between multiple physicians and providers. Disclaimer: Inadvertent spelling or grammatical errors are likely due to EHR/ dictation software use and do not reflect on the overall quality of patient care. Updated Clinical Summary: A very pleasant 61-year-old lady with comorbid issue of body mass index of 34.8 and no other known major medical issues admitted through the emergency department at [facility] on 10/17/2016 initially with anemia, that lead to workup showing ascending colon primary malignancy with lymphadenopathy around it. Biopsy positive for moderately to poorly- differentiated adenocarcinoma with ulceration.Tumor appeared to be at least a stage II or perhaps a stage III disease depending on the extent of the lymphadenopathy. Slight elevation in CEA, but significant elevation in CA 19-9. Preoperative stage T3-T4N(possible up to 2b)M0 which puts her at approximately stage 2-3. Multidisciplinary, NCCN-guided recommendation was for surgical approach first, followed by chemotherapy. Comorbidities: 1. Right colon adenocarcinoma with lymphadenopathy 2. BMI 34.8 Subjective: No major events or complaints; no major abd pain and under control with medications; no n/v/d; no sob or cp; + flatus; + BM and normal; + activity Objective: Vitals: See below Exam: GENERAL: On exam, the patient was sitting in a chair and appeared to be comfortable and in no acute distress. ABDOMEN: Soft, nontender and nondistended. There are no peritoneal signs or guarding. SKIN: Skin appears to be pink and feels warm to touch. NEUROLOGIC: Patient is awake, alert, and follows commands appropriately. Exam/Review of Systems Vital Signs Vitals Vital Signs Date Time Temp Pulse Resp B/P Pulse Ox O2 Delivery O2 Flow Rate FiO2 10/25/16 08:09 96.8 62 20 120/60 96 10/24/16 04:00 Room Air Intake and Output 10/24/16 10/24/16 10/25/16 15:00 23:00 07:00 Intake Total 1950 ml 900 ml Balance 1950 ml 900 ml Results Result Diagram: 10/25/16 0525 10/25/16 0525 KEELY LOPEZ M.D. Oct 25, 2016 14:52
== END 2016-10-25 18:00 | disposition home or self-care (01) | DRG 375 ==
LOC: E/R 12:33 → TEL 14:53 → UNDOADMIN 18:13 → TEL 18:13 → MS2 10-20 19:10
PROVIDERS: ADMIT Family Medicine; ATTEND Family Medicine
PROC: 30233N1 Transfusion of Nonautologous Red Blood Cells into Peripheral Vein, Percutaneous Approach (ICD-10-PCS; 2016-10-17)
PROC: 0DBK8ZX Excision of Ascending Colon, Via Natural or Artificial Opening Endoscopic, Diagnostic (ICD-10-PCS; principal; 2016-10-21 20:30)
PROC: 0DB68ZX Excision of Stomach, Via Natural or Artificial Opening Endoscopic, Diagnostic (ICD-10-PCS; 2016-10-21 20:30)
DX: C18.2 Malignant neoplasm of ascending colon (principal); I82.612 Acute embolism and thrombosis of superficial veins of left upper extremity; K26.9 Duodenal ulcer, unspecified as acute or chronic, without hemorrhage or perforation; I16.0 Hypertensive urgency; B96.81 Helicobacter pylori [H. pylori] as the cause of diseases classified elsewhere; D63.0 Anemia in neoplastic disease; E78.5 Hyperlipidemia, unspecified; I12.9 Hypertensive chronic kidney disease with stage 1 through stage 4 chronic kidney disease, or unspecified chronic kidney disease; N18.9 Chronic kidney disease, unspecified; E66.9 Obesity, unspecified; Z68.34 Body mass index [BMI] 34.0-34.9, adult; K59.00 Constipation, unspecified; K64.8 Other hemorrhoids; Z78.0 Asymptomatic menopausal state; R59.1 Generalized enlarged lymph nodes; F32.9 Major depressive disorder, single episode, unspecified
CPT/HCPCS: 36430; 74176; 74178; 76705; 76830; 76856; 80048; 80053; 81003; 82105; 82270; 82378; 82550; 82553; 82728; 83540; 83615; 83735; 84436; 84466; 84479; 84484; 85014; 85018; 85025; 85045; 85610; 85730; 86301; 86304; 86850; 86900; 86901; 86920; 88305; 88312; 93005; 93971; 96374; J0360; J1650; J2250; J2916; J3010; J3480; J7030; J7040; P9016; Q9967

== ENCOUNTER 2016-10-30 10:03 | Outpatient (CLI) | payer SELFPAY ==
[~2016-10-30] VITALS: Ht 170.2 cm; Wt 100.0 kg
[~2016-10-30 10:03] MED LIST: AMO500 PO; DOCU-216 PO; FER325 PO; HYD25 PO; LOV40I SC; METO-429 PO; METR500T PO; PANT40TA4 PO
[2016-10-30 10:14] VITALS: BP 161/92; PULSE 66; RESP 16; Ht 170.2 cm; Wt 100.0 kg
--- NOTE | 2016-10-30 12:16 | PN ---
Date/Time of Note Date/Time of Note DATE: 10/30/16 TIME: 12:10 Assessment/Plan Assessment/Plan Assessment/Plan [facility] Progress Note Date of Service: 10/30/16 Today's Impression & Plan: Overall stable. Discussed at length with patient and the rest of her family with help of diagrams and careful review of the available images. Reviewed the operation, risks, benefits and alternatives and obtained patient's permission to proceed. Answered all questions. With above assessment, I've recommended the following for today: 1. Pre-op H&P 2. Laparoscopic, possible open partial right radical hemicolectomy 4. Multidisciplinary tumor board presentation after surgery 5. KRAS and MSI evaluation if not already done Thank you again for your great care of this very pleasant patient and wonderful family. If there are any questions, please feel free to call me at [phone]. TOTAL VISIT TIME: 20 minutes of which more than half was spent in [id number] discussion with the patient, possibly including family, as well as coordination of care between multiple physicians and providers. Disclaimer: Inadvertent spelling or grammatical errors are likely due to EHR/ dictation software use and do not reflect on the overall quality of patient care. Updated Clinical Summary: A very pleasant 61-year-old lady with comorbid issue of body mass index of 34.8 and no other known major medical issues admitted through the emergency department at [facility] on 10/17/2016 initially with anemia, that lead to workup showing ascending colon primary malignancy with lymphadenopathy around it. Biopsy positive for moderately to poorly- differentiated adenocarcinoma with ulceration.Tumor appeared to be at least a stage II or perhaps a stage III disease depending on the extent of the lymphadenopathy. Slight elevation in CEA, but significant elevation in CA 19-9. Preoperative stage T3-T4N(possible up to 2b)M0 which puts her at approximately stage 2-3. Multidisciplinary, NCCN-guided recommendation was for surgical approach first, followed by chemotherapy. Comorbidities: 1. Right colon adenocarcinoma with lymphadenopathy 2. BMI 34.8 3. Stroke with memory loss 2002 4. L arm DVT Aug 2016 Subjective: No major events or complaints since discharge; no major abd pain and under control with medications; no n/v/d; no sob or cp; + flatus; + BM and normal; + activity Objective: Vitals: See below Exam: GENERAL: On exam, the patient was sitting in a chair and appeared to be comfortable and in no acute distress. ABDOMEN: Soft, nontender and nondistended. There are no peritoneal signs or guarding. SKIN: Skin appears to be pink and feels warm to touch. NEUROLOGIC: Patient is awake, alert, and follows commands appropriately. Exam/Review of Systems Vital Signs Vitals Vital Signs Date Time Temp Pulse Resp B/P Pulse Ox O2 Delivery O2 Flow Rate FiO2 10/30/16 10:14 97.7 66 16 161/92 97 Room Air KEELY LOPEZ M.D. Oct 30, 2016 12:16
== END 2016-10-30 17:00 | disposition home or self-care (01) ==
LOC: HPC 10:03
PROVIDERS: ATTEND Transplant Surgery
DX: C18.9 Malignant neoplasm of colon, unspecified (principal); R59.1 Generalized enlarged lymph nodes; I82.622 Acute embolism and thrombosis of deep veins of left upper extremity; Z86.73 Personal history of transient ischemic attack (TIA), and cerebral infarction without residual deficits
CPT/HCPCS: G0463